=== PATIENT | male | born 1935 | race Caucasian/White ===

== ENCOUNTER → 2024-11-04 13:44 | Outpatient (REF) | payer OTHER, SELFPAY | LOC: RAD 13:44 | PROVIDERS: ATTENDING PHYSICIAN Internal Medicine Gastroenterology; FAMILY PHYSICIAN Internal Medicine | DX: K59.01 Slow transit constipation (principal) | CPT/HCPCS: 74018 ==

== ENCOUNTER 2024-11-12 01:52 | Emergency (ER) | payer OTHER, SELFPAY ==
[2024-11-12] VITALS (10 sets, daily range): BP systolic 124–169; BP diastolic 71–89; BMI 30.2
[2024-11-12 02:28] LABS: % Basophils 0.6 % (0-2); % Eosinophils 0.8 % (0-6); % Immature Granulocytes 0.4 % (0-0.5); % Lymphocytes 22.3 % (20.5-51.1); % Monocytes 11.2 % (1.7-9.3); % Neutrophils 64.7 % (42.2-75.2); Absolute Lymphocytes 1.1 10^3/uL (1.2-3.4); Absolute Monocytes 0.5 10^3/uL (0.1-0.6); Absolute Neutrophils 3.1 10^3/uL (1.4-6.5); Hematocrit 34.5 % (39.0-52.0); Hemoglobin 12.2 g/dL (13.0-18.0); Mean Corp Hgb Conc. 35.4 g/dL (33.0-37.0); Mean Corpuscular Hgb 33.9 pg (27.0-31.0); Mean Corpuscular Volume 95.8 fL (80.0-94.0); Mean Platelet Volume 9.4 fL (7.4-10.4); Nucleated Red Blood Cells % 0 % (-); Platelet Count 168 10^3/uL (130-400); Red Cell Dist. Width 14.5 % (11.5-14.5); White Blood Cell Count 4.8 10^3/uL (4.8-10.8)
[2024-11-12] MEDS: TYLENOL 1000 MG PO (02:58)
[2024-11-12 03:04] LABS: ALT (SGPT) 12 U/L (0-50); AST (SGOT) 20 U/L (17-59); Albumin 3.7 g/dl (3.5-5.0); Alkaline Phosphatase 37 U/L (38-126); Blood Urea Nitrogen 14 mg/dl (9-20); Calcium 8.6 mg/dl (8.4-10.2); Carbon Dioxide 23 mmol/L (22-30); Chloride 97 mmol/L (98-107); Estimated Creatinine Clearance 61 ml/min; Glucose 85 mg/dl (70-99); Lipase 38 U/L (23-300); Potassium 4.2 mmol/L (3.5-5.1); Sodium 125 mmol/L (135-145); Total Bilirubin 0.7 mg/dl (0.2-1.3); Total Protein 6.1 g/dl (6.3-8.2); eGFR > 60.00
--- NOTE | 2024-11-12 06:40 | ED.GENMED ---
History of Present Illness
General
Chief Complaint: Abdominal Pain
Source: patient
Exam Limitations: none
Time Seen by Provider: 11/12/24 06:33
History of Present Illness
History of Present Illness:
See MDM
Past History
Past History
ED Past Medical History: Arrthythmia, CAD, HTN and Hypercholesterolemia
ED Past Surgical History: Bowel resection, Cardiac and Orthopedic
Social History
Tobacco: Non-smoker
Alcohol: Occasional
Drug: None
Personal:
Living: with family
Family History
Family History: Negative Early CAD
Phy Exam
Physical Exam
Physical Exam:
See MDM
Course
Orders/Labs/Results
Orders:
Orders
11/12/24 02:10
IV Insert/Care/Rem.- Treatment PRN
11/12/24 02:18
Complete Blood Count/With Diff Urgent
Comprehensive Metabolic Panel Urgent
Lipase Urgent
11/12/24 02:56
Acetaminophen [Tylenol] 1,000 mg .ROUTE .STK-MED ONE
11/12/24 02:58
Acetaminophen [Tylenol] 1,000 mg PO NOW STA
11/12/24 06:36
CT Abd/pelvis W Iv Cont Urgent
Comment:
Reason For Exam: LLQ pain
11/12/24 07:00
Urinalysis Reflex To Culture Urgent
Date Specimen was Collected: 11/12/24
Time Specimen was Collected: 02:10
11/12/24 07:08
Ketorolac [Toradol] 15 mg IV NOW STA
11/12/24 09:02
Dicyclomine [Bentyl] 10 mg PO NOW STA
Abnormal Lab Results
11/12/24
02:18
RBC 3.60 L 10^6/uL
(4.70-6.10)
Hgb 12.2 L g/dL
(13.0-18.0)
Hct 34.5 L %
(39.0-52.0)
MCV 95.8 H fL
(80.0-94.0)
MCH 33.9 H pg
(27.0-31.0)
Absolute Lymphs (auto) 1.1 L 10^3/uL
(1.2-3.4)
Monocytes % 11.2 H %
(1.7-9.3)
Sodium 125 L mmol/L
(135-145)
Chloride 97 L mmol/L
(98-107)
Alkaline Phosphatase 37 L U/L
(38-126)
Total Protein 6.1 L g/dl
(6.3-8.2)
11/12/24 02:18
11/12/24 02:18
Vital Signs
Initial and Last Documented VS:
Initial Vital Signs
Temp Pulse Resp BP Pulse Ox
98.4 F 73 18 124/79 96
11/12/24 01:58 11/12/24 01:58 11/12/24 01:58 11/12/24 01:58 11/12/24 01:58
Last Documented Vital Signs
Temp Pulse Resp BP Pulse Ox
98.4 F 66 15 155/75 98
11/12/24 01:58 11/12/24 08:15 11/12/24 08:15 11/12/24 08:00 11/12/24 07:00
MDM/Problems Addressed
Differential Diagnosis Includes:
HPI and MDM Narrative:
89-year-old male presenting with left lower quadrant pain. Patient states he has had this pain for 'quite some time'. He noticed that the pain got worse yesterday. Since this similar pain has been related to constipation, he took a laxative. He
has been having large bowel movements but the pain has been uncontrolled. On exam, he is well-appearing nontoxic. He does have mild left lower quadrant tenderness but no rebound. He is unfamiliar with a prior diagnosis of diverticulosis. Given
his pain, will obtain CT scan. Prior records indicate that he had a recent abdominal x-ray showing concerns for constipation
Physical exam
General: Well appearing and non-toxic
HEENT: protecting airway
Neck: appears supple
CV: No evidence of cyanosis
Resp: No accessory muscle use
Abd: Non-distended. Mild left lower quadrant tenderness
Extremities: No deformities
Neuro: alert
Psych: Normal affect
Skin: Intact
Problems Addressed including Acute and Chronic Conditions affecting care:
1. Left lower quadrant pain
Acuity: acute
Prognosis: stable
Details: Given the persistence of symptoms and age, will obtain CT
Updates
CT scan shows no acute bacterial infection. There is concern for enteritis and diarrhea. On reexamination, patient now having episodes of diarrhea. Will prescribe Bentyl. The CT also made concern of possible aspiration or pneumonia versus
pneumonitis. Patient denies any cough when he eats and denies any shortness of breath.
Differential Diagnosis (but not limited to): Diverticulitis, colitis, constipation
Testing considered: Screening EKG
Drug therapy (if applicable): OTC meds, please see d/c instruction regarding Rx drugs
Amount and/or Complexity of Data Reviewed
Clinical info obtained from: Patient
External data reviewed: Recent abdominal x-ray shows concern for constipation
Labs I independently reviewed (but not limited to): White blood cell count normal
Radiology: The CT scan was personally and independently reviewed. In addition, official CT report reviewed.
Pulse Ox: not hypoxic
EKG independently reviewed: N/A
Deli/Bakery Associate: N/A
Critical Care: N/A
Risk of Complication:
Social Determinants of health: Good social support
Discussed with other providers: N/A
Escalation of Care includes Admit/Obs: After being observed in the Emergency Department, pt stable for discharge.
Occasional wrong word or 'sound a like' substitutions may have occurred due to the inherent limitations of voice recognition software. Read the chart carefully and recognize, using context, where substitutions have occurred.
*Critical Care Note
Total Time (30-74mins, 75-104mins- exclusive of procedures): Not Applicable
ED Attending Note
-
Portions of this chart may have been created with voice recognition software.� Occasional wrong word or��sound alike� substitutions may have occurred due to the inherent limitations of voice recognition software.
Discharge Plan
Departure
Patient Disposition: Home (Routine Discharge)
Date of Disposition: 11/12/24
Time of Disposition: 09:05
Patient with high blood pressure during this ER visit?: No
Discharge Problem:
Enteritis
Instructions: Acute Diarrhea
Prescriptions:
New
dicyclomine 10 mg capsule
10 mg PO BID Qty: 14 0RF
No Action
acetaminophen 325 MG tablet
325 mg PO PRN PRN (Reason: .as needed )
amiodarone [Pacerone] 200 MG tablet
200 mg PO DAILY
cyanocobalamin (vitamin B-12) 1,000 MCG tablet
1 tab PO DAILY
folic acid 0.4 MG tablet
0.8 mg PO DAILY
levothyroxine 75 MCG tablet
75 mcg PO DAILY
gabapentin 300 MG capsule
300 mg PO PRN PRN (Reason: .as needed )
pravastatin 20 MG tablet
20 mg PO DAILY
Eliquis 5 MG tablet
5 mg PO BID
ascorbic acid (vitamin C) 500 MG capsule
500 mg PO DAILY
Ferrous Gluconate 324 MG Tablet
324 mg PO DAILY
calcium 600 mg Capsule
600 mg PO DAILY
levothyroxine 88 mcg Tablet
88 mcg PO DAILY
tamsulosin 0.4 mg Capsule
0.4 mg PO DAILY
Vitamin D3
50 mcg PO DAILY
Prolia
1 dose IM Q6M
Referrals:
UNKNOWN - PT DOES,NOT KNOW [Family Provider] -
Activity Restrictions/Additional Instructions:
Please return for any worsening symptoms.
You may return at any time if you have further concerns.
Please follow up with your doctor at the first available appointment, preferably this week.
Thank you for choosing [facility].
Interventions
Interventions:
*Risk Screen - Suicide Last Done: 11/12/24 01:58
*General Assessment Last Done: 11/12/24 04:22
*Neglect/Abuse Screening Last Done: 11/12/24 01:58
*ED- Fall Risk Assessment Last Done: 11/12/24 04:22
*ED COVID-19 Vaccine History Last Done: 11/12/24 04:22
UA-Sikbig-Rwhainxdaj Assessment Last Done: 11/12/24 07:05
Discharge Date and Time
Print Language: ICELANDIC
[2024-11-12] MEDS: TORADOL 15 MG IV (07:29)
[2024-11-12] MEDS: BENTYL 10 MG PO (09:22)
== END 2024-11-12 09:45 | disposition home or self-care (01) ==
LOC: EMR 01:52
PROVIDERS: Emergency Medicine; EMERGENCY PHYSICIAN Student in an Organized Health Care Education/Training Program
DX: K52.9 Noninfective gastroenteritis and colitis, unspecified (principal); R19.7 Diarrhea, unspecified; I10 Essential (primary) hypertension; I25.10 Atherosclerotic heart disease of native coronary artery without angina pectoris; E78.00 Pure hypercholesterolemia, unspecified; Z98.0 Intestinal bypass and anastomosis status; Z88.1 Allergy status to other antibiotic agents; Z88.5 Allergy status to narcotic agent; Z88.2 Allergy status to sulfonamides; Z88.8 Allergy status to other drugs, medicaments and biological substances
CPT/HCPCS: 99284; 96374; 74177; 80053; 83690; 85025; Q9967

== ENCOUNTER 2024-11-25 00:56 | Inpatient (IN) | payer OTHER, SELFPAY ==
[2024-11-24 19:43] VITALS: BP 153/82
[2024-11-24 20:14] LABS: % Basophils 0.8 % (0-2); % Eosinophils 0.6 % (0-6); % Immature Granulocytes 0.6 % (0-0.5); % Lymphocytes 23.6 % (20.5-51.1); % Monocytes 11.4 % (1.7-9.3); Absolute Lymphocytes 1.1 10^3/uL (1.2-3.4); Absolute Monocytes 0.6 10^3/uL (0.1-0.6); Hematocrit 34.6 % (39.0-52.0); Hemoglobin 12.4 g/dL (13.0-18.0); Mean Corp Hgb Conc. 35.8 g/dL (33.0-37.0); Mean Corpuscular Hgb 33.9 pg (27.0-31.0); Mean Corpuscular Volume 94.5 fL (80.0-94.0); Mean Platelet Volume 9.6 fL (7.4-10.4); Nucleated Red Blood Cells % 0 % (-); Platelet Count 165 10^3/uL (130-400); Red Blood Cell Count 3.66 10^6/uL (4.70-6.10); White Blood Cell Count 4.8 10^3/uL (4.8-10.8)
[2024-11-24 20:26] LABS: ALT (SGPT) 12 U/L (0-50); AST (SGOT) 19 U/L (17-59); Albumin 3.7 g/dl (3.5-5.0); Alkaline Phosphatase 39 U/L (38-126); Blood Urea Nitrogen 9 mg/dl (9-20); Calcium 7.8 mg/dl (8.4-10.2); Carbon Dioxide 19 mmol/L (22-30); Chloride 93 mmol/L (98-107); Glucose 95 mg/dl (70-99); Lipase 34 U/L (23-300); Potassium 4.9 mmol/L (3.5-5.1); Sodium 119 mmol/L (135-145); Total Bilirubin 0.9 mg/dl (0.2-1.3); Total Protein 6.2 g/dl (6.3-8.2); eGFR > 60.00
[2024-11-24 21:26] VITALS: BP 145/77
--- NOTE | 2024-11-24 21:39 | ED.GENMED ---
History of Present Illness
General
Chief Complaint: Abdominal Pain
Source: patient
Time Seen by Provider: 11/24/24 21:20
History of Present Illness
History of Present Illness:
89-year-old male presents to the emergency room for evaluation of left lower quadrant abdominal pain. Patient states he has episodes of severe left lower quadrant abdominal pain which occur from time to time. Frequently they are related to
constipation. If he takes a laxative he has a large bowel movement and the pain improves. Patient was actually seen here in the emergency room for this on November 12. He had a CT scan which showed some liquid stool in the colon but no other
inflammatory changes. Patient was discharged on Bentyl. He was doing well until today when the pain recurred. The pain is actually resolved at the time of my evaluation. Patient had blood work ordered while in triage. Sodium turns out to be
quite low at 119. Patient admits to drinking a lot more water recently than his norm. Patient has been diagnosed with hyponatremia in the past and has been hospitalized at least 3 times. He was told to take salt tablets after the last time he was
admitted. He states his family doctor told him to stop though he is unclear why he states it is bad tasting.
Past History
Past History
ED Past Medical History: Arrthythmia, CAD, HTN and Hypercholesterolemia
ED Past Surgical History: Bowel resection, Cardiac and Orthopedic
Social History
Tobacco: Non-smoker
Alcohol: Occasional
Drug: None
Personal:
Living: with family
Family History
Family History: Negative Early CAD
Phy Exam
Physical Exam
Physical Exam:
General: Awake, Alert, Oriented X3. No acute distress.
Vitals: unremarkable
Head: Atraumatic
Eyes: Pupils equal, EOMI
Throat: Airway intact, no exudates
Neck: Trachea midline
Lungs: Clear and equal b/l
Heart: Regular rate, no murmurs
Abd: Soft, no reproducible abdominal pain, No pulsatile mass
Neuro: Nonfocal
Skin: Warm, dry, no rash
Extremities: pulses equal b/l, no edema
Course
Orders/Labs/Results
Orders:
Orders
11/24/24 19:59
Complete Blood Count/With Diff Urgent
Comprehensive Metabolic Panel Urgent
Lipase Urgent
11/24/24 22:14
Admit/Transfer Patient As Directed
Co-Sign Provider:
Level of Care: Inpatient admission
Assign to:: Telemetry
Physician / Group: Manish
Diagnosis: Acute on Chronic Hyponatremia, LLQ Pain
Reason for Telemetry: Arrhythmia
Date to Stop Telemetry: 11/27/24
Time to Stop Telemetry: 11:00
Reason for Hospitalization: Acute on Chronic Hyponatremia, LLQ Pain
Expected length of stay greater than two midnights?: Yes
ELOS- Estimated Length of Stay in days: 3
I certify the patient meets the requirements for IP care: Yes
PRN Pain Medication Management As Directed
May give lesser potent ordered pain med per pt: Yes
preference::
Protocol:: Medication orders for pain may be administered in a
manner that supports deferring to patient preference
when the pt is:
- Requesting an ordered lesser potent pain medication.
Least to most potent pain medications are defined
as: acetaminophen < NSAID < tramadol < opioids
(morphine, oxycodone, hydromorphone).
- Requesting a lesser dose of the same medication IF
ORDERED.
- Requesting a less intrusive route of administration
if both routes are prescribed by the provider (PO <
IV).
11/24/24 22:15
Code Status As Directed
Resuscitation Status: Full Code
11/24/24 22:20
Ketorolac [Toradol] 15 mg IV NOW STA
11/24/24 22:31
Osmolality, Random Urine Urgent
Date Specimen was Collected: 11/24/24
Time Specimen was Collected: 22:27
Urinalysis Urgent
Date Specimen was Collected: 11/24/24
Time Specimen was Collected: 22:27
Urine Sodium Urgent
Date Specimen was Collected: 11/24/24
Time Specimen was Collected: 22:27
11/24/24 22:42
Electrocardiogram (*1) Urgent
Reason for Study: Tachycardia
EKG- Treatment ONCE
11/24/24 23:00
3% Sodium Chloride 250 ml [Sodium Chloride 3%] 250 ml IV ONCE
Flush (0.9% Sodium Chloride) [Flush (Nss)] See Dose Instructions IV PER PROTOCOL
11/27/24 11:00
DC Protocol for Telemetry ONCE
Abnormal Lab Results
11/24/24 11/24/24
19:59 22:31
RBC 3.66 L 10^6/uL
(4.70-6.10)
Hgb 12.4 L g/dL
(13.0-18.0)
Hct 34.6 L %
(39.0-52.0)
MCV 94.5 H fL
(80.0-94.0)
MCH 33.9 H pg
(27.0-31.0)
Absolute Lymphs (auto) 1.1 L 10^3/uL
(1.2-3.4)
Immature Gran % 0.6 H %
(0-0.5)
Monocytes % 11.4 H %
(1.7-9.3)
Sodium 119 L* mmol/L
(135-145)
Chloride 93 L mmol/L
(98-107)
Carbon Dioxide 19 L mmol/L
(22-30)
Calcium 7.8 L mg/dl
(8.4-10.2)
Total Protein 6.2 L g/dl
(6.3-8.2)
Urine Ketones 1+ A
(Negative)
Urine Sodium 91 H mmol/L
(30-90)
11/24/24 19:59
11/24/24 19:59
Vital Signs
Initial and Last Documented VS:
Initial Vital Signs
Temp Pulse Resp BP Pulse Ox
97.8 F 83 20 153/82 97
11/24/24 19:43 11/24/24 19:43 11/24/24 19:43 11/24/24 19:43 11/24/24 19:43
Last Documented Vital Signs
Temp Pulse Resp BP Pulse Ox
97.8 F 67 15 117/56 95
11/24/24 19:43 11/25/24 00:00 11/25/24 00:00 11/25/24 00:00 11/24/24 22:15
MDM/Problems Addressed
MDM/Problems Addressed:
Patient presents with left lower quad abdominal pain which has resolved. His abdominal exam is benign. He had a CT scan performed on November 12 which was essentially unremarkable. Blood work today shows normal white count, normal renal function. His
sodium was a bit low on the at 125. It has gotten significantly lower today at 119. Discussed with nephrology. Will start hypertonic saline at 20 cc an hour. Urine osmolality and urine sodium ordered. Patient will require hospitalization
for this critically low sodium level
*Pulse Oximetry
Patient hypoxic: no
*Critical Care Note
Total Time (30-74mins, 75-104mins- exclusive of procedures): Not Applicable
Data Reviewed
Review of Other/Old Records Reveals: Radiology Studies (CT report from about 10 days ago)
Further Testing Considered But Not Given:
Considered CAT scan but given he just had a CT about 10 days ago and he has no reproducible pain on exam I do not believe that this radiation exposure is appropriate
Patient Management
Social determinants of health affecting care: Living situation
Discussion with other providers: Hospitalist
ED Attending Note
-
Portions of this chart may have been created with voice recognition software.� Occasional wrong word or��sound alike� substitutions may have occurred due to the inherent limitations of voice recognition software.
Discharge Plan
Departure
Patient Disposition: Admit
Date of Disposition: 11/24/24
Time of Disposition: 21:53
Admit to: Med/Surg
Presentation/result/management discussed w/ accepting MD/DO: Hospitalist
Condition: Serious
Discharge Problem:
Hyponatremia
Interventions
Interventions:
*Risk Screen - Suicide Last Done: 11/24/24 19:43
*General Assessment Last Done: 11/24/24 19:43
*Neglect/Abuse Screening Last Done: 11/24/24 19:43
*ED COVID-19 Vaccine History Last Done: 11/24/24 19:47
DW-Rmrrpx-Reicgskxri Assessment Last Done: 11/24/24 21:00
[2024-11-24] MEDS: SODIUM CHLORIDE 3% 250 IV (22:20)
--- NOTE | 2024-11-24 22:24 | HPS.HSE ---
Family Physician
-
Family Physician: Cyndi Spencer MD
Chief Complaint
-
Abd Pain
History of Present Illness
Patient is an 89y M with PMH significant for ASCVD, hypertension and A-Fib who presents to ED complaining of LLQ abdominal pain. Patient reports a long history of LLQ pain 'off-and on' x years. Patient states that his pain has been associated
with constipation in the past and has improved with bowel regimen +/- enemas. He presented to the ED here on 11/[address] scan done at that time was unremarkable (actually showed some liquid stool in the colon - no significant
stool burden / constipation). Patient notes that he was feeling OK for a week or so, but then the pain returned.
He has been taking laxatives at home and drinking more water / fluids than normal in an attempt to alleviate his 'constipation'.
Patient states that he has actually had about 4 bowel movements in the past 2 days. Three normal appearing BM and one loose stool.
He presented to the ED this evening with 8/10 abdominal pain. He denies any N/V, fevers / chills, urinary symptoms, bloody / black stools, etc.
Medical History
Past Medical History
Past Medical History: Reports Other
Additional Past Medical History:
ASCVD
Aortic Stenosis
A-Fib s/p Ablation
Hypothyroidism
SIADH
BPH
Past Surgical History: Reports Other
Additional Past Surgical History:
CABG
PVI Ablation
PPM Placement
Aortic Valve Replacement
Partial Bowel Resection (pneumatosis intestinalis)
Left STEPHANE (x 2)
Social History
Tobacco: Non-smoker
Alcohol: Occasional
Drug: None
Family History
Family History: Not pertinent
Allergies / Home Medications
Allergies reflects when Allergies were last updated in [employer].
Home Medications with original date entered in [employer]
Allergy/Medication List:
Allergies
Allergy/AdvReac Type Severity Reaction Status Date / Time
hyoscyamine Allergy Unknown Verified 11/24/24 19:47
lisinopril Allergy Unknown Verified 11/24/24 19:47
losartan Allergy Unknown Verified 11/24/24 19:47
oxycodone Allergy Unknown Verified 11/24/24 19:47
sulfamethoxazole (From Allergy Unknown Verified 11/24/24 19:47
Bactrim)
trimethoprim (From Bactrim) Allergy Unknown Verified 11/24/24 19:47
Home Medications
Ferrous Gluconate 324 mg PO BID Supplement 03/16/21
acetaminophen 325 mg tablet 325 mg PO Q6HPRN PRN mild pain 03/16/21
amiodarone 200 mg tablet (Pacerone) 200 mg PO DAILY@1200 Arrhythmia 03/16/21
apixaban 5 mg tablet (Eliquis) 5 mg PO BID Blood clot prevention/tx 03/16/21
ascorbic acid (vitamin C) 500 mg capsule 500 mg PO DAILY@1200 Supplement 03/16/21
cyanocobalamin (vitamin B-12) 1,000 mcg tablet 1,000 mcg PO DAILY@1200 Supplement 03/16/21
folic acid 400 mcg tablet 0.8 mg PO DAILY Stroke 03/16/21
gabapentin 300 mg capsule 300 mg PO HS 03/16/21
pravastatin 20 mg tablet 20 mg PO QPM High cholesterol 03/16/21
denosumab 60 mg/mL subcutaneous syringe (Prolia) 60 mg SC [id number] 11/12/24
levothyroxine 88 mcg tablet 88 mcg PO DAILY 11/12/24
tamsulosin 0.4 mg capsule 0.4 mg PO BID 11/12/24
calcium carbonate (Calcium 600) 600 mg PO DAILY 11/24/24
multivitamin with minerals (Hair,Skin and Nails tablet) 1 tab PO DAILY 11/24/24
sennosides 8.6 mg tablet (senna) 8.6 mg PO DAILYPRN PRN constipation 11/24/24
Review of Systems
-
History Source: Patient
A 12 point ROS was completed and negative except as noted: Yes
Constitutional: Reports Fatigue; Denies Fever or Chills
Respiratory: Denies Cough or Trouble Breathing
Cardiac: Denies Chest Pain or Palpitations
Abdomen/GI: Reports Abdominal Pain and Constipated; Denies Nausea, Vomiting, Diarrhea, Bloody Stools or Black Stools
: Denies Dysuria or Frequency
Musculoskeletal: Denies Joint Pain or Edema
Neurological: Denies Dizzy or Headache
Psych: Denies Depression or Anxiety
Physical Exam
Vital Signs
Vital Signs
Temp Pulse Resp BP Pulse Ox
97.8 F 66 19 145/77 98
11/24/24 19:43 11/24/24 21:28 11/24/24 21:28 11/24/24 21:26 11/24/24 21:28
Physical Exam
General: Other (89y M in mild distress due to abdominal pain.)
HEENT: Moist mucous membranes and PERRLA
Respiratory: Clear; No Wheezes, Rales or Rhonchi
Cardiac: S1/S2, Regular Rhythm and Murmur (III/ CATHY)
GI: Soft, Non Tender, Non Distended, Normal Bowel Sounds and Other (Patient complains of LLQ pain - but there is no tenderness on exam.)
Musculoskeletal: No Clubbing, No Cyanosis and Other (Trace pedal edema.)
Neuro: AO x 3
Laboratory Results
-
11/24/24 19:59
11/24/24 19:59
Laboratory Results
Total Bilirubin 0.9 mg/dl (0.2-1.3) 11/24/24 19:59
AST 19 U/L (17-59) 11/24/24 19:59
ALT 12 U/L (0-50) 11/24/24 19:59
Alkaline Phosphatase 39 U/L (38-126) 11/24/24 19:59
Lipase 34 U/L (23-300) 11/24/24 19:59
Impression/Plan
-
A/P: Patient is an 89y M with PMH significant for SIADH, ASCVD and A-Fib who presents to ED complaining of LLQ pain and noted to have hyponatremia.
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
SIADH
- Admit for further evaluation and treatment.
- Na today is 119 compared to baseline usually 125-130.
- Combination of pain response, increased fluid intake, etc.
- Urine studies are pending.
- 3% saline ordered in the ED.
- Fluid restriction.
- Will resume salt tabs again (patient states that he has been off of these for at least 1 year - per PCP direction).
- Nephrology evaluation.
- Follow for improvement in Na levels.
LLQ Abdominal Pain
- Unclear etiology of chronic / recurrent symptoms.
- Patient reports constipation; however, current CT and review of prior imaging all note liquid stool in colon / rectum and not large amount of stool burden / constipation seen on imaging.
- No evidence of diverticulitis, etc. No tenderness on exam despite report of pain.
- Supportive care. Would hold further bowel regimen for now given liquid stool on imaging and no improvement in pain despite 4 BM in the past 2 days.
- GI evaluation for any additional recommendations.
ASCVD
A-Fib s/p Ablation
- Stable. Continue current CV med regimen.
- s/p ablation and PPM placement.
- Continue amiodarone and Eliquis.
Hypothyroidism
- Continue current T4 replacement for now.
- Update TFTs and adjust dose if needed.
BPH
- Stable. Continue tamsulosin.
DVT Prophylaxis: On Eliquis
Code Status: Full
[2024-11-24] MEDS: TORADOL 15 MG IV (22:28)
[2024-11-24 22:31] VITALS: BP 146/69
[2024-11-24 22:42] LABS: Urine Albumin Negative (Neg - Trace); Urine Bilirubin Negative (Negative); Urine Character Clear (Clear); Urine Color Yellow; Urine Glucose Negative (Negative); Urine Ketone 1+ (Negative); Urine Leukocyte Negative (Negative); Urine Nitrite Negative (Negative); Urine Occult Blood Negative (Negative); Urine Urobilinogen Negative (Neg - 1+)
[2024-11-24 22:47] LABS: Osmolality Urine 419 mOsm/kg (300-900)
[2024-11-24 22:51] LABS: Urine Sodium 91 mmol/L (30-90)
[2024-11-24 23:00] VITALS: BP 136/60
[2024-11-25] VITALS (17 sets, daily range): BP systolic 117–165; BP diastolic 56–99; BMI 29.8
[2024-11-25] MEDS: TYLENOL 650 MG PO ×2 (02:56→21:05)
--- NOTE | 2024-11-25 04:56 | TRANSFER ---
Pt admitted to [facility] from ED with acute on chronic hyponatremia and LLQ pain. Pt ambulated from stretcher to bed. Pt oriented to room, call cm within reach. Plan of care ongoing.
[2024-11-25 05:39] LABS: Hemoglobin 12.1 g/dL (13.0-18.0); Mean Corp Hgb Conc. 35.6 g/dL (33.0-37.0); Mean Corpuscular Hgb 33.9 pg (27.0-31.0); Mean Corpuscular Volume 95.2 fL (80.0-94.0); Mean Platelet Volume 10.1 fL (7.4-10.4); Platelet Count 172 10^3/uL (130-400); Red Blood Cell Count 3.57 10^6/uL (4.70-6.10); White Blood Cell Count 3.9 10^3/uL (4.8-10.8)
[2024-11-25] MEDS: SYNTHROID 88 MCG PO (06:06)
[2024-11-25 06:27] LABS: Blood Urea Nitrogen 8 mg/dl (9-20); Calcium 7.3 mg/dl (8.4-10.2); Carbon Dioxide 22 mmol/L (22-30); Chloride 92 mmol/L (98-107); Estimated Creatinine Clearance 69 ml/min; Glucose 82 mg/dl (70-99); Potassium 5.1 mmol/L (3.5-5.1); Sodium 117 mmol/L (135-145); eGFR > 60.00
--- NOTE | 2024-11-25 06:40 | PTCARENOTE ---
Received critical sodium result of 117 down from 119 in the ED. BONDERITE OPERATOR notified and advised to let current order 250ml of Sodium Chloride 3% running at 20ml/hr finish.
[2024-11-25 06:43] LABS: TSH Reflex To Free T4 7.19 uIU/ml (0.47-4.68)
--- NOTE | 2024-11-25 07:07 | CON.GI ---
Addendum entered and electronically signed by Celestina Jane MD 11/25/24 15:05:
I saw and examined the patient.
The COSTUME RENTAL CLERK's note was reviewed and I agree with the note.
Comment: This is a pleasant 89-year-old male with past medical history as listed below including history of pneumatosis intestinalis status post colon resection and was seeing Dr. Mathur, chronic constipation, SIADH, A-fib on Eliquis and amiodarone
and rest as below who presented to the emergency room with symptoms of left lower quadrant pain. He had similar pain on 11/[address] in the ER not revealing any source for the pain. He does have constipation but he did have a bowel movement today
and he states that the pain actually resolved after he came to the ER and received pain medications and has not had further pain. He had his last colonoscopy with Dr. Mathur about 5 years ago. He denies any fevers chills no nausea or vomiting. He
was also found to have significant hyponatremia with a sodium of 119 on admission and has been seen by renal.
Assessment and plan chronic left lower quadrant pain with worsening pain yesterday and also visit to the ER for similar pain on 11/12. Unclear if this is related to adhesions from prior surgery versus constipation although CT suggestive of
gastroenteritis from 11/12 no diarrhea currently and he did have a bowel movement today. he denies straining or hard stools. It could also be related to referred pain from his back he does have L1 compression fracture. If pain recurs or worsens
then would repeat CT but today he has no pain and is tolerating diet. Will sign off and will be available as needed
Original Note:
Consultation
-
Date/Time Consultation Requested: 11/24/242229
Date/Time Consultation Performed: 11/25/24919
Requesting Provider: Chon Hammond DO
Performing Provider: REA Gonzáles, Celestina Jnae MD
Reason for Consultation: abdominal pain
Medical History
Chief Complaint / HPI
Chief Complaint: LLQ abdominal pain
History of Present Illness:
Pt is a 89yo with hx afib with prior ablation on Eliquis, CAD with prior CABG/AVR, pacer, BPH, HTN, constipation, osteoporosis, iron deficiency, prior bowel resection with pneumatosis intestinalis, hyponatremia, SIADH present to ER with LLQ pain
with acute on chronic symptoms for years. Pt with similar ER evaluation 11/12 Pain was noted to be improved in ER but pt also noted with Na 119 and admitted for further evaluation. Recent imaging prior to admission 11/12 with increased bibasilar
reticular and nodular opacities which may represent acute pneumonitis superimposed on chronic interstitial disease with possible aspiration, suggestive of coloenteritis/diarrheal illness,Small hiatal hernia, Cholelithiasis, and Chronic compression
deformity of the L1 vertebral body.11/04/24 Abd film Nonobstructive intestinal bowel gas pattern.Moderate volume widespread colonic stool.
In review with patient he admits to chronic LLQ pain. He was improved for 2 years but now recurrent pain. Pain in past has been triggered by constipation with hx resection in past . He admits to taking laxative and pain improving. He
started with recurrent abdominal pain prior to admission. Pain was different pattern as pain was worse after laxative and BM. Pain is now resolved. Pt also admits to some nausea and minimal bloating. Pt otherwise denies dysphagia, GERD,
diarrhea, or rectal bleeding. No EGD in past but several colonoscopies at [facility] last several years ago. No NSAID use.
Past Medical History
Past Medical History: Arrhythmias (afib with hx prior ablation ), CAD, HTN, Valvular Disease () and Other (constipation, osteoporosis, iron deficiency, hyponatremia, SIAHD, BPH)
Past Surgical History: Bowel Resection (pneumatosis intestinalis ), Cardiac (CABG, AVR, pacer ) and Orthopedic (left hip surgery, spinal surgery )
Social History
Tobacco: Non-Smoker
Alcohol: Occasional (3 glasses of wine weekly )
Drug: None
Personal:
Living: Alone
Employment: Retired
Family History
Family History: Other (no family hx colon CA or polyps )
Allergies / Home Medications
Allergy/AdvReac Type Severity Reaction Status Date / Time
hyoscyamine Allergy Unknown Verified 11/24/24 19:47
lisinopril Allergy Unknown Verified 11/24/24 19:47
losartan Allergy Unknown Verified 11/24/24 19:47
oxycodone Allergy Unknown Verified 11/24/24 19:47
sulfamethoxazole (From Allergy Unknown Verified 11/24/24 19:47
Bactrim)
trimethoprim (From Bactrim) Allergy Unknown Verified 11/24/24 19:47
�Medication �Instructions �Recorded
Ferrous Gluconate 324 mg PO BID Supplement 03/16/21
acetaminophen 325 mg tablet 325 mg PO Q6HPRN PRN mild pain 03/16/21
amiodarone 200 mg tablet (Pacerone) 200 mg PO DAILY@1200 Arrhythmia 03/16/21
apixaban 5 mg tablet (Eliquis) 5 mg PO BID Blood clot 03/16/21
prevention/tx
ascorbic acid (vitamin C) 500 mg 500 mg PO DAILY@1200 Supplement 03/16/21
capsule
cyanocobalamin (vitamin B-12) 1,000 mcg PO DAILY@1200 Supplement 03/16/21
1,000 mcg tablet
folic acid 400 mcg tablet 0.8 mg PO DAILY Stroke 03/16/21
gabapentin 300 mg capsule 300 mg PO HS 03/16/21
pravastatin 20 mg tablet 20 mg PO QPM High cholesterol 03/16/21
denosumab 60 mg/mL subcutaneous 60 mg SC [id number] 11/12/24
syringe (Prolia)
levothyroxine 88 mcg tablet 88 mcg PO DAILY 11/12/24
tamsulosin 0.4 mg capsule 0.4 mg PO BID 11/12/24
calcium carbonate (Calcium 600) 600 mg PO DAILY 11/24/24
multivitamin with minerals 1 tab PO DAILY 11/24/24
(Hair,Skin and Nails tablet)
sennosides 8.6 mg tablet (senna) 8.6 mg PO DAILYPRN PRN constipation 11/24/24
Review of Systems
-
History Source: Patient
Constitutional: Reports No Symptoms
EENT: Reports No Symptoms
Respiratory: Reports No Symptoms
Cardiac: Reports No Symptoms
Abdomen/GI: Reports Abdominal Pain (LLQ pain ), Nausea and Constipated (at time )
: Reports No Symptoms
Musculoskeletal: Reports No Symptoms
Skin: Reports No Symptoms
Neurological: Reports Other (mental fogginess )
Endocrine: Reports No Symptoms
Hematologic/Lymphatic: Reports No Symptoms
Vital Signs
Temp Pulse Resp BP Pulse Ox
97.6 F 75 18 131/64 98
11/25/24 02:03 11/25/24 02:03 11/25/24 02:03 11/25/24 02:03 11/25/24 02:03
Physical Exam
Exam
General: Well Developed, Well Nourished and No Apparent Distress
HEENT: Normocephalic
Respiratory: Clear
Cardiac: Regular Rhythm
GI: Soft, Non Tender and Non Distended
Musculoskeletal: No Clubbing and No Cyanosis
Skin: Warm and Dry
Neuro: Awake, Alert, AO x 3 and Other (admits to fogginess and some forgetfulness )
Psych: Calm
Results
WBC 3.9 10^3/uL (4.8-10.8) L 11/25/24 05:07
Hgb 12.1 g/dL (13.0-18.0) L 11/25/24 05:07
Hct 34.0 % (39.0-52.0) L 11/25/24 05:07
MCV 95.2 fL (80.0-94.0) H 11/25/24 05:07
Plt Count 172 10^3/uL (130-400) 11/25/24 05:07
Absolute Neuts (auto) 3.0 10^3/uL (1.4-6.5) 11/24/24 19:59
Sodium 117 mmol/L (135-145) L* 11/25/24 05:07
Potassium 5.1 mmol/L (3.5-5.1) 11/25/24 05:07
Chloride 92 mmol/L (98-107) L 11/25/24 05:07
Carbon Dioxide 22 mmol/L (22-30) 11/25/24 05:07
BUN 8 mg/dl (9-20) L 11/25/24 05:07
Creatinine 0.7 mg/dL (0.7-1.3) 11/25/24 05:07
Calcium 7.3 mg/dl (8.4-10.2) L 11/25/24 05:07
Total Bilirubin 0.9 mg/dl (0.2-1.3) 11/24/24 19:59
AST 19 U/L (17-59) 11/24/24 19:59
ALT 12 U/L (0-50) 11/24/24 19:59
Alkaline Phosphatase 39 U/L (38-126) 11/24/24 19:59
Lipase 34 U/L (23-300) 11/24/24 19:59
Diagnostic Image Results:
11/12 with increased bibasilar reticular and nodular opacities which may represent acute pneumonitis superimposed on chronic interstitial disease with possible aspiration, suggestive of coloenteritis/diarrheal illness,Small hiatal hernia,
Cholelithiasis, and Chronic compression deformity of the L1 vertebral body.
11/04/24 Abd film Nonobstructive intestinal bowel gas pattern.Moderate volume widespread colonic stool.
Prior GI Procedures:
EGD: none
Colonoscopy: last several years ago at [facility]
Assessment / Plan
-
Pt is a 89yo with hx afib with prior ablation on Eliquis, CAD with prior CABG/AVR, pacer, BPH, HTN, constipation, osteoporosis, iron deficiency, prior bowel resection, hyponatremia, SIADH present to ER with LLQ pain with acute on chronic symptoms
for years. Pt with similar ER evaluation 5/17. Pain was noted to be improved in ER but pt also noted with Na 119 and admitted for further evaluation. Recent imaging prior to admission 11/12 with
increased bibasilar reticular and nodular opacities which may represent acute pneumonitis superimposed on chronic interstitial disease with possible aspiration, suggestive of coloenteritis/diarrheal illness,Small hiatal hernia, Cholelithiasis, and
Chronic compression deformity of the L1 vertebral body.11/04/24 Abd film Nonobstructive intestinal bowel gas pattern.Moderate volume widespread colonic stool.
-severe hyponatremia on admission with hx SIADH
-acute on chronic LLQ abdominal pain now resolved.
-hx constipation
other medical problems:
-ASCVD
-hypothyroidism
-BPH
-afib with prior ablation on Eliquis prior to admission
-CAD with prior CABG
-hx AVR
-pacer
-HTN
-osteoporosis
-iron deficiency
-prior bowel resection
PLAN:
etiology of abdominal pain related to low grade ileus with severe hyponatremia, constipation drive with hx prior colon resection vs other
pt pain now resolved
hold imaging unless signs of recurrent pain
cont diet
Na 119--117-- cont to correct for renal eval
pt currently with stool this am and declines need for laxative-- will add Dulcolax/senna PRN
pt declines to use fiber and miralax as no improvement with use in past
reviewed with nursing staff
-
-
Thank you for consultation and allowing me to participate in the patient's care. Please call the alteration hand GI physician during the after hours with any questions or concerns.
[2024-11-25 07:13] LABS: Free T4 2.17 ng/dl (0.78-2.19)
[2024-11-25] MEDS: FLOMAX 0.4 MG PO ×2 (07:57→20:02)
[2024-11-25] MEDS: FOLVITE 0.8 MG PO (07:57)
[2024-11-25] MEDS: ELIQUIS 5 MG PO ×2 (07:57→20:02)
[2024-11-25] MEDS: SODIUM CHLORIDE 1 GRAM PO (07:58)
--- NOTE | 2024-11-25 11:06 | W.CON.NEPH ---
Consultation
-
Date/Time Consultation Requested: November 24, 2024 at 11 PM
Date/Time Consultation Performed: November 25, 2024 at 9 AM
Requesting Provider: Dr. Hammond
Performing Provider: Dr. Washington
Reason for Consultation: Hyponatremia
Medical History
-
Chief Complaint: Hyponatremia
History of Present Illness:
89y M with PMH significant for ASCVD, hypertension and A-Fib who presents to ED complaining of LLQ abdominal pain. He presented to the ED here on 11/[address] scan done at that time was unremarkable (actually showed some
liquid stool in the colon - no significant stool burden / constipation). Patient notes that he was feeling OK for a week or so, but then the pain returned.
He has been taking laxatives at home and drinking more water / fluids than normal in an attempt to alleviate his 'constipation'.
History of hyponatremia 2020 sodium 125 is deemed to be SIADH she was on salt tablets that has been discontinued.
He states he had hyponatremia again in 2022 of 125
He presented to the ED this evening with 8/10 abdominal pain.
Renal consult for hyponatremia of 119
On 3% saline
Past Medical History
ASCVD, hypertension and A-Fib
Social History
Tobacco: Non-Smoker
Alcohol: None
Allergies / Home Medications
Allergy/AdvReac Type Severity Reaction Status Date / Time
hyoscyamine Allergy Unknown Verified 11/24/24 19:47
lisinopril Allergy Unknown Verified 11/24/24 19:47
losartan Allergy Unknown Verified 11/24/24 19:47
oxycodone Allergy Unknown Verified 11/24/24 19:47
sulfamethoxazole (From Allergy Unknown Verified 11/24/24 19:47
Bactrim)
trimethoprim (From Bactrim) Allergy Unknown Verified 11/24/24 19:47
�Medication �Instructions �Recorded �Confirmed �Type
Ferrous Gluconate 324 mg PO BID Supplement 03/16/21 11/24/24 History
acetaminophen 325 mg tablet 325 mg PO Q6HPRN PRN mild pain 03/16/21 11/24/24 History
amiodarone 200 mg tablet (Pacerone) 200 mg PO DAILY@1200 Arrhythmia 03/16/21 11/24/24 History
apixaban 5 mg tablet (Eliquis) 5 mg PO BID Blood clot 03/16/21 11/24/24 History
prevention/tx
ascorbic acid (vitamin C) 500 mg 500 mg PO DAILY@1200 Supplement 03/16/21 11/24/24 History
capsule
cyanocobalamin (vitamin B-12) 1,000 mcg PO DAILY@1200 Supplement 03/16/21 11/24/24 History
1,000 mcg tablet
folic acid 400 mcg tablet 0.8 mg PO DAILY Stroke 03/16/21 11/24/24 History
gabapentin 300 mg capsule 300 mg PO HS 03/16/21 11/24/24 History
pravastatin 20 mg tablet 20 mg PO QPM High cholesterol 03/16/21 11/24/24 History
denosumab 60 mg/mL subcutaneous 60 mg SC [id number] 11/12/24 11/24/24 History
syringe (Prolia)
levothyroxine 88 mcg tablet 88 mcg PO DAILY 11/12/24 11/24/24 History
tamsulosin 0.4 mg capsule 0.4 mg PO BID 11/12/24 11/24/24 History
calcium carbonate (Calcium 600) 600 mg PO DAILY 11/24/24 11/24/24 History
multivitamin with minerals 1 tab PO DAILY 11/24/24 11/24/24 History
(Hair,Skin and Nails tablet)
sennosides 8.6 mg tablet (senna) 8.6 mg PO DAILYPRN PRN constipation 11/24/24 11/24/24 History
Review of Systems
-
Mild nausea
Physical Exam
Vital Signs
Vital Signs
Temp Pulse Resp BP Pulse Ox
97.6 F 72 16 141/77 97
11/25/24 07:10 11/25/24 07:10 11/25/24 07:10 11/25/24 07:10 11/25/24 07:10
Lab Results
WBC 3.9 10^3/uL (4.8-10.8) L 11/25/24 05:07
RBC 3.57 10^6/uL (4.70-6.10) L 11/25/24 05:07
Hgb 12.1 g/dL (13.0-18.0) L 11/25/24 05:07
Hct 34.0 % (39.0-52.0) L 11/25/24 05:07
Plt Count 172 10^3/uL (130-400) 11/25/24 05:07
eGFR > 60.00 11/25/24 05:07
Albumin 3.7 g/dl (3.5-5.0) 11/24/24 19:59
Physical Exam
General no acute distress
HEENT no cephalic atraumatic extraocular muscle intact no scleral icterus no JVD neck supple
lungs clear to auscultation bilateral
heart regular S1-S2 positive
abdomen soft nontender positive bowel sounds
extremities no edema pulses present bilateral
Neurologically nonfocal alert and oriented x 3
Skin no lesions no abrasions no petechiae
Psych normal affect no bizarre behavior
Data Reviewed
-
Labs: Labs Reviewed by me, Discussed with Physician and Discussed with Patient
Assessment/Plan
-
89y M with PMH significant for ASCVD, hypertension and A-Fib who presents to ED complaining of LLQ abdominal pain.
Sodium 119
Chronic hyponatremia with recurrent admissions
Previously on salt tablets
Impression.
Hyponatremia. 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
Abdominal pain.
Hypertension.
Atrial fibrillation.
Plan.
Continue 3% saline
Increased dose to 30 cc/h
Stat BMP
BMP later this afternoon
Check bladder scan
[2024-11-25 11:26] LABS: Blood Urea Nitrogen 7 mg/dl (9-20); Calcium 7.1 mg/dl (8.4-10.2); Carbon Dioxide 18 mmol/L (22-30); Chloride 94 mmol/L (98-107); Estimated Creatinine Clearance 81 ml/min; Glucose 93 mg/dl (70-99); Potassium 4.8 mmol/L (3.5-5.1); Sodium 116 mmol/L (135-145); eGFR > 60.00
--- NOTE | 2024-11-25 11:43 | W.PN.HOSP.TC ---
Today's Communication/Plan
-
continue 3%NS
follow labs
await further input from GI as to etio of LLQ abd pain
Assessment / Plan
Assessment / Plan
A/P: Patient is an 89y M with PMH significant for SIADH, ASCVD and A-Fib who presents to ED complaining of LLQ pain and noted to have hyponatremia.
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
SIADH
- Admit for further evaluation and treatment.
- Na on admission 119 (compared to baseline usually 125-130)-->117-->116
- Combination of pain response, increased fluid intake, etc.
- Urine studies are pending.
- 3% saline ordered in the ED.
- Fluid restriction.
- Will resume salt tabs again (patient states that he has been off of these for at least 1 year - per PCP direction).
- Nephrology input appreciated
- Follow for improvement in Na levels.
LLQ Abdominal Pain
- Unclear etiology of chronic / recurrent symptoms.
- Patient reports constipation; however, current CT and review of prior imaging all note liquid stool in colon / rectum and not large amount of stool burden / constipation seen on imaging.
- No evidence of diverticulitis, etc. No tenderness on exam despite report of pain.
- Supportive care. Would hold further bowel regimen for now given liquid stool on imaging and no improvement in pain despite 4 BM in the past 2 days.
- GI evaluation for any additional recommendations.
CT scan 11/12: There is increased bibasilar reticular and nodular opacities which may represent acute pneumonitis superimposed on chronic interstitial disease. Findings can also be seen in the setting of aspiration.
Findings suggestive of coloenteritis/diarrheal illness.
Small hiatal hernia.
Cholelithiasis.
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
ASCVD
A-Fib s/p Ablation
- Stable. Continue current CV med regimen.
- s/p ablation and PPM placement.
- Continue amiodarone and Eliquis.
Hypothyroidism
- Continue current T4 replacement for now.
- TSH 7.19/free T4 2.17
BPH
- Stable. Continue tamsulosin.
DVT Prophylaxis: On Eliquis
Code Status: Full
Anticipated Discharge: > 48 hours
Subjective/Interval History
-
Date of Service: November 25, 2024
Major concern is LLQ pain, generally does not feel well
Objective Data
-
Labs:
Laboratory Results
11/25/24 11/25/24 11/25/24
05:07 10:29 16:00
WBC 3.9 L
Hgb 12.1 L
Hct 34.0 L
Plt Count 172
Sodium 117 L* 116 L* Pending
Potassium 5.1 4.8 Pending
Chloride 92 L 94 L Pending
Carbon Dioxide 22 18 L Pending
BUN 8 L 7 L Pending
Creatinine 0.7 0.6 L Pending
Glucose 82 93 Pending
Calcium 7.3 L 7.1 L Pending
Vital Signs:
Vital Signs
Temp Pulse Resp BP Pulse Ox
97.6 F 72 16 141/77 97
11/25/24 07:10 11/25/24 07:10 11/25/24 07:10 11/25/24 07:10 11/25/24 07:10
Review of Systems
-
History Source: Patient and Coordinated Provider (discussed with Meche)
Constitutional: Reports No Symptoms; Denies Fever
EENT: Reports No Symptoms Reported
Respiratory: Reports No Symptoms
Cardiac: Reports No Symptoms
Abdomen/GI: Reports Abdominal Pain (LLQ)
Physical Exam
-
General: Well Developed, Well Nourished and No Apparent Distress
HEENT: Normocephalic, Atraumatic and Moist Mucous Membranes
Respiratory: Clear to Auscultation; Negative Wheezes, Rales or Rhonchi
Cardiac: Regular Rhythm and S1/S2
GI: Soft, Nontender, Nondistended and Normal Bowel Sounds
Musculoskeletal: No Clubbing, No Cyanosis and No Edema
Neuro: Awake, Alert and Oriented
[2024-11-25] MEDS: PACERONE 200 MG PO (12:41)
--- NOTE | 2024-11-25 14:55 | CM ---
Alert awake oriented patient who lives alone at [facility]. He no longer drives. He is independent in all activities of daily living.He was offered VN he declined need.He uses cane walker and has exercise program at [place].
No VN hx / No SNF history
Pharmacy [facility]
PCP DR Pratt
PLAN Home Declined VN
[2024-11-25 16:51] LABS: Blood Urea Nitrogen 9 mg/dl (9-20); Calcium 7.3 mg/dl (8.4-10.2); Carbon Dioxide 19 mmol/L (22-30); Chloride 93 mmol/L (98-107); Estimated Creatinine Clearance 69 ml/min; Glucose 88 mg/dl (70-99); Potassium 4.7 mmol/L (3.5-5.1); Sodium 114 mmol/L (135-145); eGFR > 60.00
--- NOTE | 2024-11-25 17:42 | PTCARENOTE ---
pt reporting new nausea. pt reporting brain fog throughout the day, providers notified this AM. 1600 BMP Na resulted at 114. Dr. Serrano and Dr. Washington notified via tt. transfer order to ICU and 3% bolus placed. nursing sup notified, ICU bed
1615, reported called at 1740.
[2024-11-25 18:11] LABS: Glucose - Point of Care 107 mg/dl (70-99)
[2024-11-25] MEDS: SODIUM CHLORIDE 3% 100 IV (18:21)
[2024-11-25] MEDS: PRAVACHOL 20 MG PO (18:27)
[2024-11-25] MEDS: SODIUM CHLORIDE 3% 250 IV (18:30)
--- NOTE | 2024-11-25 19:19 | PTCARENOTE ---
Pt arrived to ICU approx 1800. Pt able to walk to bed, Pt oriented x3, and BENAVIDES bilat. HR AV paced, BP 140/80. O2 sat=95% on R/A, lobes clear. 3% Na Cl/100 ml hung at 400 ml/hr over 15 mins, and then 3% Na Cl/ 250 ml now infusing at 30 ml/hr over
next 8 hrs, 2 mins. Urinal at pt's side, and call cm within reach in bed. Pt's granddaughter visiting with pt now.
--- NOTE | 2024-11-25 20:43 | PTCARENOTE ---
Received patient AAOx3, following commands, denying pain with granddaughter at bedside. KALSKAG b/l. AV paced in the 60s, BP 140s/70s, normothermic, trace LE b/l edema. 95% on room air, lung sounds clear, diminished in the bases b/l. Positive bowel
sounds, patient ambulates with assistance to bathroom to void. Skin intact. PIV WNL, 3% NSS gtt ongoing. Warm blanket provided, call cm within reach.
[2024-11-25 20:44] LABS: Blood Urea Nitrogen 8 mg/dl (9-20); Calcium 7.2 mg/dl (8.4-10.2); Carbon Dioxide 16 mmol/L (22-30); Chloride 97 mmol/L (98-107); Estimated Creatinine Clearance 69 ml/min; Glucose 101 mg/dl (70-99); Potassium 4.9 mmol/L (3.5-5.1); Sodium 116 mmol/L (135-145); eGFR > 60.00
[2024-11-25] MEDS: NEURONTIN 300 MG PO (21:05)
[2024-11-25 23:12] LABS: Blood Urea Nitrogen 8 mg/dl (9-20); Calcium 7.4 mg/dl (8.4-10.2); Carbon Dioxide 17 mmol/L (22-30); Chloride 97 mmol/L (98-107); Estimated Creatinine Clearance 69 ml/min; Glucose 83 mg/dl (70-99); Potassium 4.7 mmol/L (3.5-5.1); Sodium 117 mmol/L (135-145); eGFR > 60.00
[2024-11-26] VITALS (19 sets, daily range): BP systolic 106–157; BP diastolic 42–112; BMI 28.1
--- NOTE | 2024-11-26 00:36 | PTCARENOTE ---
Patient assessment unchanged from previous, hourly rounding and patient safety checks ongoing. Call cm within reach.
[2024-11-26 04:09] LABS: Hematocrit 33.4 % (39.0-52.0); Hemoglobin 11.9 g/dL (13.0-18.0); Mean Corp Hgb Conc. 35.6 g/dL (33.0-37.0); Mean Corpuscular Hgb 33.8 pg (27.0-31.0); Mean Corpuscular Volume 94.9 fL (80.0-94.0); Platelet Count 173 10^3/uL (130-400); Red Blood Cell Count 3.52 10^6/uL (4.70-6.10); Red Cell Dist. Width 13.8 % (11.5-14.5); White Blood Cell Count 4.1 10^3/uL (4.8-10.8)
[2024-11-26 04:37] LABS: Blood Urea Nitrogen 7 mg/dl (9-20); Calcium 7.6 mg/dl (8.4-10.2); Carbon Dioxide 14 mmol/L (22-30); Chloride 102 mmol/L (98-107); Estimated Creatinine Clearance 69 ml/min; Glucose 90 mg/dl (70-99); Potassium 4.9 mmol/L (3.5-5.1); Sodium 121 mmol/L (135-145); eGFR > 60.00
--- NOTE | 2024-11-26 04:41 | PTCARENOTE ---
Patient assessment unchanged from previous, labs sent, call cm within reach.
[2024-11-26] MEDS: SYNTHROID 88 MCG PO (05:06)
--- NOTE | 2024-11-26 08:01 | W.PN.HOSP.TC ---
Today's Communication/Plan
-
will continue in ICU for now
await nephrology decision as to next step in management of hyponatremia
follow BMP, repeat this morning and in AM
Assessment / Plan
Assessment / Plan
A/P: Patient is an 89y M with PMH significant for SIADH, ASCVD and A-Fib who presents to ED complaining of LLQ pain and noted to have hyponatremia.
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
Due to declining Na, Nephro requested transfer to ICU late yesterday afternoon.
SIADH
- Admit for further evaluation and treatment.
- Na on admission 119 (compared to baseline usually 125-130)-->117-->116-->114-->116-->117-->121
- Combination of pain response, increased fluid intake, etc.
- Urine studies: Osmo 419/Ur Na 91
- 3% saline ordered by nephrology
will defer initiation of Samsca to nephro
- Fluid restriction.
- Will resume salt tabs again (patient states that he has been off of these for at least 1 year - per PCP direction) as per nephro
- Nephrology input appreciated
- Follow for improvement in Na levels.
WBC 4.8-->3.9-->4.1k
LLQ Abdominal Pain
- Unclear etiology of chronic / recurrent symptoms.
- Patient reports constipation; however, current CT and review of prior imaging all note liquid stool in colon / rectum and not large amount of stool burden / constipation seen on imaging.
- No evidence of diverticulitis, etc. No tenderness on exam despite report of pain.
- Supportive care. Would hold further bowel regimen for now given liquid stool on imaging and improvement in symptoms
Has outpt appt with Dr. Nuñez in early December. ? vascular related. Call placed and discussed CT images with Dr. Graves, who felt that the radiologic images not typical for ischemic origin
- GI evaluation noted, they have signed off
CT scan 11/12: There is increased bibasilar reticular and nodular opacities which may represent acute pneumonitis superimposed on chronic interstitial disease. Findings can also be seen in the setting of aspiration.
Findings suggestive of coloenteritis/diarrheal illness.
Small hiatal hernia.
Cholelithiasis.
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
ASCVD
A-Fib s/p Ablation
- Stable. Continue current CV med regimen.
- s/p ablation and PPM placement.
- Continue amiodarone and Eliquis.
Hypothyroidism
- Continue current T4 replacement for now.
- TSH 7.19/free T4 2.17
BPH
- Stable. Continue tamsulosin.
DVT Prophylaxis: On Eliquis
Code Status: Full
Anticipated Discharge: > 48 hours
Subjective/Interval History
-
Date of Service: November 26, 2024
Awake, alert, No BM's past 24 hrs, but LLQ abd pain not currently active
Objective Data
-
Labs:
Laboratory Results
11/25/24 11/25/24 11/26/24
20:08 22:41 03:57
WBC 4.1 L
Hgb 11.9 L
Hct 33.4 L
Plt Count 173
Sodium 116 L* 117 L* 121 L
Potassium 4.9 4.7 4.9
Chloride 97 L 97 L 102
Carbon Dioxide 16 L 17 L 14 L*
BUN 8 L 8 L 7 L
Creatinine 0.7 0.7 0.7
Glucose 101 H 83 90
Calcium 7.2 L 7.4 L 7.6 L
Vital Signs:
Vital Signs
Temp Pulse Resp BP Pulse Ox
98.2 F 70 19 150/76 96
11/26/24 07:16 11/26/24 06:00 11/26/24 06:00 11/26/24 06:00 11/26/24 06:00
I&O
11/25/24 11/26/24 11/27/24
06:59 06:59 06:59
Intake Total 270 / 270
Output Total 400 / 400
Balance -130 / -130
Review of Systems
-
History Source: Patient and Coordinated Provider (discussed with CASSANDRA Figueroa)
Constitutional: Reports No Symptoms; Denies Fever
EENT: Reports No Symptoms Reported
Respiratory: Reports No Symptoms
Cardiac: Reports No Symptoms
Abdomen/GI: Reports Abdominal Pain (LLQ location, but none currently)
Physical Exam
-
General: Well Developed, Well Nourished and No Apparent Distress (sitting up in chair, appears less ill)
HEENT: Normocephalic, Atraumatic and Moist Mucous Membranes
Respiratory: Clear to Auscultation; Negative Wheezes, Rales or Rhonchi
Cardiac: Regular Rhythm and S1/S2
GI: Soft, Nontender, Nondistended and Normal Bowel Sounds
Musculoskeletal: No Clubbing, No Cyanosis and No Edema
Neuro: Awake, Alert and Oriented
--- NOTE | 2024-11-26 08:21 | CON.INTV ---
Addendum entered and electronically signed by Raymond Last MD 11/26/24 22:02:
UPDATE: Serum sodium was repeated at 6 PM and was 128. Compared to approximately 24 hours ago, this is a 12-14 mmol/L increase. I did review with nephrology (Dr. Washington) if this was grounds for overcorrection, however he did not feel that
D5W, dDAVP or continued close monitoring in the ICU was warranted.
Patient is appropriate for downgrade out of ICU to telemetry. Transfer orders placed and ICU charge nurse as well as patient's bedside nurse were updated. Transfer orders placed in [facility].
No additional recommendations at this time. Net Sql Developer/Pulmonary service will now sign off. Thank you for allowing us to be involved in the care of this patient. Please reconsult if there are any additional questions/concerns, or if patient's
respiratory status deteriorates.
Original Note:
Consultation
Consultation Request
Date/Time Consultation Requested: 11/25/20241757
Date/Time Consultation Performed: 11/26/2024 - 811
Requesting Provider: Dr. Serrano
Performing Provider: Dr. Last
Reason for Consultation: Severe hyponatremia
Medical History
-
Chief Complaint: Abdominal pain
History of Present Illness:
89-year-old male with a past medical history of CAD, hypertension, constipation, osteoporosis, chronic hyponatremia, iron deficiency anemia, A-fib with history of cardioversion + ablation now on chronic amiodarone and Eliquis, and osteoporosis who
presented with abdominal pain. Patient has a long history of chronic constipation with diarrhea as well. Previously used to see Dr. Nuñez with GI, last visit in April 2023. He is now coming in with left lower quadrant abdominal pain. He has
been taking laxatives at home and drinking increasing amounts of water, more than usual in an attempt to help alleviate his constipation. He was found to be significantly hyponatremic with initial sodium 119. Over the last several years, his
sodium has ranged between 125-132. Case discussed with nephrology and the patient was given 250 cc of 3% NS in the ER and admitted to the ICU for further care. Net Sql Developer service is now consulted for additional management/recommendations.
Patient was seen and evaluated this morning. Currently on room air breathing comfortably and sitting in chair in no acute distress. Currently denies abdominal pain. Still having watery stool which he says is common for him. Sodium this morning
was 121, increasing from 117 last night at 2241. Patient currently denies ANN, chest pain, SOB, nausea, fevers or chills.
PMHx: CAD, hypertension, constipation, osteoporosis, chronic hyponatremia, iron deficiency anemia, A-fib with history of cardioversion + ablation now on chronic amiodarone and Eliquis, osteoporosis
PSHx: Left total hip replacement, CABG, AVR, pacemaker, spinal surgery
Past Medical History
Past Medical History: Other (Above as per HPI)
Past Surgical History: Other (Above as per HPI)
Social History
Tobacco: Non-smoker
Alcohol: Occasional
Drug: None
Personal:
Family History
Family History: Cancer (Mother (unknown type)) and Other (Father: Cardiac history)
Allergies / Home Medications
Allergies
Allergy/AdvReac Type Severity Reaction Status Date / Time
hyoscyamine Allergy Unknown Verified 11/24/24 19:47
lisinopril Allergy Unknown Verified 11/24/24 19:47
losartan Allergy Unknown Verified 11/24/24 19:47
oxycodone Allergy Unknown Verified 11/24/24 19:47
sulfamethoxazole (From Allergy Unknown Verified 11/24/24 19:47
Bactrim)
trimethoprim (From Bactrim) Allergy Unknown Verified 11/24/24 19:47
Home Medications
�Medication �Instructions �Recorded �Confirmed �Last Taken �Type
Ferrous Gluconate 324 mg PO BID Supplement 03/16/21 11/24/24 11/23/24 History
acetaminophen 325 mg tablet 325 mg PO Q6HPRN PRN mild pain 03/16/21 11/24/24 11/24/24 History
amiodarone 200 mg tablet (Pacerone) 200 mg PO DAILY@1200 Arrhythmia 03/16/21 11/24/24 11/23/24 History
apixaban 5 mg tablet (Eliquis) 5 mg PO BID Blood clot 03/16/21 11/24/24 11/23/24 08:00 History
prevention/tx
ascorbic acid (vitamin C) 500 mg 500 mg PO DAILY@1200 Supplement 03/16/21 11/24/24 11/23/24 History
capsule
cyanocobalamin (vitamin B-12) 1,000 mcg PO DAILY@1200 Supplement 03/16/21 11/24/24 11/23/24 History
1,000 mcg tablet
folic acid 400 mcg tablet 0.8 mg PO DAILY Stroke 03/16/21 11/24/24 11/23/24 History
gabapentin 300 mg capsule 300 mg PO HS Neurological Condition 03/16/21 11/24/24 11/23/24 History
pravastatin 20 mg tablet 20 mg PO QPM High cholesterol 03/16/21 11/24/24 11/23/24 History
denosumab 60 mg/mL subcutaneous 60 mg SC [id number] OSTEOPEROSIS 11/12/24 11/24/24 Unknown History
syringe (Prolia)
levothyroxine 88 mcg tablet 88 mcg PO DAILY@06 Thyroid 11/12/24 11/26/24 11/23/24 History
tamsulosin 0.4 mg capsule 0.4 mg PO BID Urinary Issue 11/12/24 11/24/24 11/23/24 History
calcium carbonate (Calcium 600) 600 mg PO DAILY Supplement 11/24/24 11/24/24 11/23/24 History
multivitamin with minerals 1 tab PO DAILY Supplement 11/24/24 11/24/24 11/23/24 History
(Hair,Skin and Nails tablet)
sennosides 8.6 mg tablet (senna) 8.6 mg PO DAILYPRN PRN constipation 11/24/24 11/24/24 11/21/24 History
Review of Systems
-
History Source: Patient
All other systems: Negative unless noted
Vitals / Labs / Diagnostic Testing
Vital Signs
Temp Pulse Resp BP Pulse Ox
98.2 F 71 23 136/42 96
11/26/24 07:16 11/26/24 08:15 11/26/24 08:15 11/26/24 08:00 11/26/24 08:15
Lab Data
11/26/24 03:57
Diagnostic Testing:
Physical Exam
-
HEENT: Normocephalic and Anicteric
Cardiovascular: S1/S2, Rub (n) and Peripheral Edema (negative)
Respiratory: Clear, Wheeze (negative), Rales (negative) and Rhonchi (negative)
GI: Soft, Non Distended, Non Tender and Normal Bowel Sounds
Neurology: AO x 3 and Tremors (negative)
Skin: Warm and Dry
General: Respiratory Distress (negative), Comfortable, Fever (negative) and Chills (negative)
Assessment
-
Assessment: 89-year-old male with a past medical history of CAD, hypertension, constipation, osteoporosis, chronic hyponatremia, iron deficiency anemia, A-fib with history of cardioversion + ablation now on chronic amiodarone and Eliquis, and
osteoporosis who presented with abdominal pain. Patient has a long history of chronic constipation with diarrhea as well. Previously used to see Dr. Nuñez with GI, last visit in April 2023. He is now coming in with left lower quadrant
abdominal pain. He has been taking laxatives at home and drinking increasing amounts of water, more than usual in an attempt to help alleviate his constipation. He was found to be significantly hyponatremic with initial sodium 119. Over the last
several years, his sodium has ranged between 125-132. Case discussed with nephrology and the patient was given 250 cc of 3% NS in the ER and admitted to the ICU for further care. [employer] Developer service is now consulted for additional
management/recommendations.
Chronic conditions BUSINESS CONTINUITY ANALYST: CAD, hypertension, constipation, osteoporosis, chronic hyponatremia, iron deficiency anemia, A-fib with history of cardioversion + ablation now on chronic amiodarone and Eliquis, osteoporosis
Impression:
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
#Abdominal pain
#Hypothyroidism with abnormal TFTs (TSH: 7.19, free T4: 2.17)
#Leukopenia
#Anemia
#Metabolic acidosis with preserved anion gap likely due to diarrhea
#Hypertension
#Atrial fibrillation s/p cardioversion + ablation on amiodarone + Eliquis
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
Plan:
- Nephrology consulted and recommendations greatly appreciated well managing the correction of his serum sodium
- Cautiously corrected serum sodium to avoid overcorrection; ideally should not raise serum sodium by more than 10-12 mmol/L in 24 hours, and by no more than 16-18 mmol/L in 48 hours
- Continue serial chemistries to continue trending serum sodium
- Given that the patient's serum sodium is now >120, can liberalize the frequency of chemistry blood draws
- Replete electrolytes with K>4, Mg>2
- Monitor UOP and trend sCr and sHCO3 levels
- Maintain MAP>65
- Maintain SpO2 >90-94% - currently breathing comfortably on room air
- prn nebulized bronchodilators - not currently bronchospastic
- Incentive spirometer encouraged 10x per hour for at least 4 hrs a day
- The patient has evidence of bibasilar fibrosis, which was seen on prior CT abdomen/pelvis from 10/19/2015, and interstitial changes have now worsened when compared to most recent CT abdomen/pelvis on 11/12/2024. He denies a history of pulmonary
fibrosis nor a family history of interstitial lung disease. He denies a cough or shortness of breath. He is a non-smoker, denies any prior asbestos exposure. Prior occupation was and electrical installation supervisor but no known volatile chemical exposure or
any other inhalational irritants that he was exposed to.
- He is amenable to following up with me in the office for full PFTs and a dedicated CT chest which can be performed as an outpatient
- Recommend repeating TFTs as an outpatient to assure that TSH normalizes as it is 7.19 as of yesterday, otherwise his levothyroxine dose may need to be increased
- Maintain euglycemia with goal BG 140-180
- Trend H/H and transfuse if needed to keep Hb>7g/dL; keep plt>20k, unless there is concern for bleeding then keep plt>50k
- DVT ppx: Eliquis
Will continue to trend serum sodium level and as long as it remains >120�125 and is not overcorrected then patient will be downgraded to telemetry, as long as nephrology and hospitalist agree with disposition. Once patient is downgraded,
Net Sql Developer/Pulmonary service will then sign off. Please call back with any questions or concerns. As stated above, I will arrange for outpatient pulmonary office follow-up given the worsened bibasilar interstitial lung abnormalities seen on
recent CT abdomen/pelvis from 11/12/2024.
Total time spent today was 78 minutes for this encounter. Time includes reviewing laboratory test/imaging results, reviewing pertinent medical records, obtaining and reviewing medical history, performing an appropriate exam, ordering medications,
tests and procedures. Time also includes documentation of this encounter, coordinating patient care and communicating with other healthcare professionals. Total time does not include separately billed tests performed on this date of service.
[2024-11-26] MEDS: ELIQUIS 5 MG PO ×2 (08:30→19:52)
[2024-11-26] MEDS: FLOMAX 0.4 MG PO ×2 (08:30→19:52)
[2024-11-26] MEDS: FOLVITE 0.8 MG PO (08:30)
--- NOTE | 2024-11-26 09:48 | PTCARENOTE ---
Rec'd pt at 0700. Pt AAOx3, follows commands, BENAVIDES. Pt sitting OOB in chair. Monitor AV paced. Lungs CTA, pox 96% RA. +BS. Pt c/o LLQ 2/10 after eating breakfast, not requiring any pain meds at this time. Voiding yellow urine via urinal.
--- NOTE | 2024-11-26 09:51 | W.PN.NEPH.PH ---
Today's Communication / Plan
-
Samsca
Assessment/Plan
-
89y M with PMH significant for ASCVD, hypertension and A-Fib who presents to ED complaining of LLQ abdominal pain.
Sodium 119
Chronic hyponatremia with recurrent admissions
Previously on salt tablets
Impression.
Hyponatremia. 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
Abdominal pain.
Hypertension.
Atrial fibrillation.
Plan.
Status post hypertonic saline 100 cc bolus for symptomatic hyponatremia
BMP later this afternoon
Check bladder scan= 241
Will give Samsca
Hold hypertonic saline at this
Discussed with critical care team

31 minutes critical care time
-
-
Date of Service: November 26, 2024
CC / HPI / ROS
-
Chief Complaint:
Hyponatremia
History of Present Illness:
Abdominal pain presents with hyponatremia 117 improved to 121
Review of Systems:
No chest pain or shortness of breath mild abdominal pain
Labs
-
Labs:
WBC 4.1 10^3/uL (4.8-10.8) L 11/26/24 03:57
RBC 3.52 10^6/uL (4.70-6.10) L 11/26/24 03:57
Hgb 11.9 g/dL (13.0-18.0) L 11/26/24 03:57
Hct 33.4 % (39.0-52.0) L 11/26/24 03:57
Plt Count 173 10^3/uL (130-400) 11/26/24 03:57
eGFR > 60.00 11/26/24 03:57
Albumin 3.7 g/dl (3.5-5.0) 11/24/24 19:59
Physical Exam
-
Vital Signs:
Vital Signs
Temp Pulse Resp BP Pulse Ox
98.2 F 71 23 136/42 96
11/26/24 07:16 11/26/24 08:15 11/26/24 08:15 11/26/24 08:00 11/26/24 08:15
Respiratory:: Bilateral: CTA
Lung Excursion:: Normal
Abdomen:: Soft
Bowel Sounds:: Normal
Extremity Edema:: None: Bilateral:
Arroyo Catheter: No
[2024-11-26] MEDS: SAMSCA 15 MG PO (10:33)
[2024-11-26] MEDS: DULCOLAX 5 MG PO (12:33)
[2024-11-26] MEDS: PACERONE 200 MG PO (12:34)
--- NOTE | 2024-11-26 15:11 | PTCARENOTE ---
Pt bowel fixated this am, stating his stomach is 'rumbling' and the LLQ pain means he's constipated and needs a laxative. Explained care plan to pt, pt again requesting laxative. 1230-Ducolax PO given, 10 minutes later pt had pulled call cm in
bathroom, pt with large loose stool in toilet and on the floor. Pt helped with care. Pt stated that the laxative worked fast, explained to pt that the laxative doesn't work that quickly and again went over plan of care. Pt with 2 more loose stools
in bathroom.
[2024-11-26] MEDS: PRAVACHOL 20 MG PO (17:13)
[2024-11-26 18:32] LABS: Blood Urea Nitrogen 8 mg/dl (9-20); Calcium 8.3 mg/dl (8.4-10.2); Carbon Dioxide 19 mmol/L (22-30); Chloride 103 mmol/L (98-107); Estimated Creatinine Clearance 53 ml/min; Glucose 113 mg/dl (70-99); Potassium 4.8 mmol/L (3.5-5.1); Sodium 128 mmol/L (135-145); eGFR > 60.00
--- NOTE | 2024-11-26 21:00 | PTCARENOTE ---
Addendum entered by Sandy Gomes RN 11/26/24 21:48:
pt OOB by himself, uses the bathroom as needed.
Original Note:
rec`d pt at 1900 AAOx3 OOB in chair. pt hard of hearing. AV paced on monitor. RA POX high 90s. PIVS flushed and patent. call cm in reach, safe environment maintained. Spoke to Dr Last and said ok to downgrade. aware of last sodium of 128.
[2024-11-26] MEDS: NEURONTIN 300 MG PO (21:05)
[2024-11-27] VITALS (8 sets, daily range): BP systolic 92–156; BP diastolic 44–83; BMI 28.0
[2024-11-27 03:38] LABS: % Basophils 0.7 % (0-2); % Eosinophils 1.3 % (0-6); % Immature Granulocytes 0.4 % (0-0.5); % Lymphocytes 19.4 % (20.5-51.1); % Monocytes 12.9 % (1.7-9.3); % Neutrophils 65.3 % (42.2-75.2); Absolute Eosinophils 0.1 10^3/uL (0-0.7); Absolute Lymphocytes 0.9 10^3/uL (1.2-3.4); Absolute Monocytes 0.6 10^3/uL (0.1-0.6); Absolute Neutrophils 2.9 10^3/uL (1.4-6.5); Hematocrit 37.1 % (39.0-52.0); Hemoglobin 12.7 g/dL (13.0-18.0); Mean Corp Hgb Conc. 34.2 g/dL (33.0-37.0); Mean Corpuscular Hgb 33.2 pg (27.0-31.0); Mean Corpuscular Volume 97.1 fL (80.0-94.0); Mean Platelet Volume 9.4 fL (7.4-10.4); Nucleated Red Blood Cells % 0 % (-); Platelet Count 179 10^3/uL (130-400); Red Blood Cell Count 3.82 10^6/uL (4.70-6.10); White Blood Cell Count 4.5 10^3/uL (4.8-10.8)
[2024-11-27 04:07] LABS: Blood Urea Nitrogen 10 mg/dl (9-20); Calcium 8.7 mg/dl (8.4-10.2); Carbon Dioxide 22 mmol/L (22-30); Chloride 108 mmol/L (98-107); Estimated Creatinine Clearance 48 ml/min; Glucose 88 mg/dl (70-99); Magnesium 2.3 mg/dl (1.6-2.3); Potassium 5.1 mmol/L (3.5-5.1); Sodium 133 mmol/L (135-145); eGFR > 60.00
[2024-11-27] MEDS: SYNTHROID 88 MCG PO (05:27)
[2024-11-27] MEDS: FOLVITE 0.8 MG PO (09:35)
[2024-11-27] MEDS: FLOMAX 0.4 MG PO ×2 (09:35→20:11)
[2024-11-27] MEDS: ELIQUIS 5 MG PO ×2 (09:35→20:11)
--- NOTE | 2024-11-27 11:07 | PTCARENOTE ---
Patient arrived to unit. VSS. Patient AAOx4, patient tolerated ambulating in room. free from falls. call cm in reach. safety maintained.
[2024-11-27] MEDS: PACERONE 200 MG PO (11:26)
--- NOTE | 2024-11-27 14:49 | W.PN.HOSP.TC ---
Today's Communication/Plan
-
recheck labs in AM
CRS consult
resume NaCl tabs
Assessment / Plan
Assessment / Plan
A/P: Patient is an 89y M with PMH significant for SIADH, ASCVD and A-Fib who presents to ED complaining of LLQ pain and noted to have hyponatremia.
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
Due to declining Na, Nephro requested transfer to ICU late yesterday, doing better, now transferred OOICU
SIADH
- Admit for further evaluation and treatment.
- Na on admission 119 (compared to baseline usually 125-130)-->117-->116-->114-->116-->117-->121-given 1 dose of Samsca-->128-->133
- Combination of pain response, increased fluid intake, etc.
- Urine studies: Osmo 419/Ur Na 91
- Fluid restriction. Discussed with nephro, okay to resume NaCl tabs
- Will resume salt tabs again (patient states that he has been off of these for at least 1 year - per PCP direction) as per nephro
- Nephrology input appreciated
- Follow for improvement in Na levels.
WBC 4.8-->3.9-->4.1-->4.5k
LLQ Abdominal Pain
- Unclear etiology of chronic / recurrent symptoms.
- Patient reports constipation; however, current CT and review of prior imaging all note liquid stool in colon / rectum and not large amount of stool burden / constipation seen on imaging.
Pain intensified when he needed to move bowels, then improved and is currently resolved
- No evidence of diverticulitis, etc. No tenderness on exam despite report of pain.
- Supportive care. Would hold further bowel regimen for now given liquid stool on imaging and improvement in symptoms
Has outpt appt with Dr. Nuñez in early December. ? vascular related. Call placed and discussed CT images with Dr. Graves, who felt that the radiologic images not typical for ischemic origin
- GI evaluation noted, they have signed off. Plan CRS consult tomorrow
CT scan 11/12: There is increased bibasilar reticular and nodular opacities which may represent acute pneumonitis superimposed on chronic interstitial disease. Findings can also be seen in the setting of aspiration.
Findings suggestive of coloenteritis/diarrheal illness.
Small hiatal hernia.
Cholelithiasis.
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
ASCVD
A-Fib s/p Ablation
- Stable. Continue current CV med regimen.
- s/p ablation and PPM placement.
- Continue amiodarone and Eliquis.
Hypothyroidism
- Continue current T4 replacement for now.
- TSH 7.19/free T4 2.17
BPH
- Stable. Continue tamsulosin.
DVT Prophylaxis: On Eliquis
Code Status: Full
Anticipated Discharge: 24 - 48 hours
Subjective/Interval History
-
Date of Service: November 27, 2024
Pt has been transferred to tele
Objective Data
-
Labs:
Laboratory Results
11/27/24
03:21
WBC 4.5 L
Hgb 12.7 L
Hct 37.1 L
Plt Count 179
Sodium 133 L
Potassium 5.1
Chloride 108 H
Carbon Dioxide 22
BUN 10
Creatinine 0.9
Glucose 88
Calcium 8.7
Vital Signs:
Vital Signs
Temp Pulse Resp BP Pulse Ox
98.7 F 81 18 122/83 96
11/27/24 11:06 11/27/24 11:06 11/27/24 11:06 11/27/24 11:26 11/27/24 11:06
I&O
11/26/24 11/27/24 11/28/24
06:59 06:59 06:59
Intake Total 270 / 270 580 / 580
Output Total 400 / 400 400 / 400
Balance -130 / -130 180 / 180
Review of Systems
-
History Source: Patient
Constitutional: Reports No Symptoms; Denies Fever
EENT: Reports No Symptoms Reported
Respiratory: Reports No Symptoms
Cardiac: Reports No Symptoms
Abdomen/GI: Reports Abdominal Pain (LLQ location, but none currently)
Physical Exam
-
General: Well Developed, Well Nourished and No Apparent Distress (generally looks better)
HEENT: Normocephalic, Atraumatic and Moist Mucous Membranes
Respiratory: Clear to Auscultation; Negative Wheezes, Rales or Rhonchi
Cardiac: Regular Rhythm and S1/S2
GI: Soft, Nontender, Nondistended and Normal Bowel Sounds
Musculoskeletal: No Clubbing, No Cyanosis and No Edema
Neuro: Awake, Alert and Oriented
[2024-11-27] MEDS: PRAVACHOL 20 MG PO (17:14)
[2024-11-27] MEDS: TYLENOL 650 MG PO (19:10)
[2024-11-27] MEDS: SODIUM CHLORIDE 1 GRAM PO (20:11)
[2024-11-27] MEDS: NEURONTIN 300 MG PO (20:12)
[2024-11-28 03:26] VITALS: BP 143/74
[2024-11-28] MEDS: SYNTHROID 88 MCG PO (05:25)
[2024-11-28 07:39] VITALS: BP 127/67
--- NOTE | 2024-11-28 08:34 | PTCARENOTE ---
Pt reported room spinning this AM was unable to get OOB to use bathroom. Was incontinent of mostly liquid stool. Attempted orthostatic BPs, but he was unable to tolerate OOB. Became nauseous and was retching, and had to lay back down. Current BP
lying flat 150/77 but stills reports outside the window is spinning. notified.
--- NOTE | 2024-11-28 09:08 | WOUNDNOTE ---
[facility] RN note: Patient admitted with acute on chronic hyponatremia, LLQ pain.
See H&P for complete history.
PMH: ASCVD, HTN, a fib, s/p ablation, aortic stenosis, BPH, CABG, PPM placement, aortic valve replacement, partial bowel resection, L STEPHANE.
Wound Location and type/assessment: Patient admitted with: newly healed red scar/white scab on spine suspect from friction on spinal process. Coccyx/buttocks mild MASD. L lateral ankle blanchable mild red and intact.
Appetite: poor.
Pressure redistribution devices in place: [employer] Accumax. Patient turns self in bed.
Plan: Protective silicone border foam applied to spine and L lateral ankle. Cleansed coccyx skin with saline. Heels off bed with pillow. Air chair cushion given. Instructed patient to use pillow or air chair cushion on back of the chair to pad
spine and pressure injury prevention measures. Discussed with CASSANDRA Hernandez.
Care plan to be updated, will sign off. Call if needed.
[2024-11-28] MEDS: SODIUM CHLORIDE 1 GRAM PO ×2 (10:21→21:14)
[2024-11-28] MEDS: FLOMAX 0.4 MG PO ×2 (10:22→21:14)
[2024-11-28] MEDS: ELIQUIS 5 MG PO ×2 (10:22→21:14)
[2024-11-28] MEDS: FOLVITE 0.8 MG PO (10:22)
[2024-11-28 11:06] VITALS: BP 148/88
--- NOTE | 2024-11-28 11:33 | W.PN.HOSP.TC ---
Addendum entered and electronically signed by Easton Serrano MD 11/28/24 11:49:
Stacy turner was called and updated to current situation 11/28
Original Note:
Today's Communication/Plan
-
Consult CRS regarding bowel
recheck labs
Neuro consult for ?Vertigo with CT scan of brain
hold dc
Assessment / Plan
Assessment / Plan
A/P: Patient is an 89y M with PMH significant for SIADH, ASCVD and A-Fib who presents to ED complaining of LLQ pain and noted to have hyponatremia.
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
Due to declining Na, Nephro requested transfer to ICU doing better, has now been transferred OOICU
SIADH
- Na on admission 119 (compared to baseline usually 125-130)-->117-->116-->114-->116-->117-->121-given 1 dose of Samsca-->128-->133
- Combination of pain response, increased fluid intake, etc.
- Urine studies: Osmo 419/Ur Na 91
- Fluid restriction. Discussed with nephro, okay to resume NaCl tabs
- Nephrology input appreciated
- Follow for improvement in Na levels.
WBC 4.8-->3.9-->4.1-->4.5k
11/28 Today pt is complaining of severe and overwhelming dizziness, especially when looks to the left. Most likely this is vertigo, will order CT scan and request neuro opinion
Start Meclizine pending neuro eval
LLQ Abdominal Pain
- Unclear etiology of chronic / recurrent symptoms.
- Patient reports constipation; however, current CT and review of prior imaging all note liquid stool in colon / rectum and not large amount of stool burden / constipation seen on imaging.
Pain intensified when he needed to move bowels, then improved and is currently resolved
- No evidence of diverticulitis, etc. No tenderness on exam despite report of pain.
- Supportive care. Would hold further bowel regimen for now given liquid stool on imaging and improvement in symptoms
Has outpt appt with Dr. Nuñez in early December. ? vascular related. Call placed and discussed CT images with Dr. Graves, who felt that the radiologic images not typical for ischemic origin
- GI evaluation noted, they have signed off. Plan CRS consult discussed with Dr. Melgar.
Concern that the hyponatremia could be associated with pain and that the pain is coming from the lower bowel in the area of the sigmoid-descending colon area. ?Ischemic watershed area
CT scan 11/12: There is increased bibasilar reticular and nodular opacities which may represent acute pneumonitis superimposed on chronic interstitial disease. Findings can also be seen in the setting of aspiration.
Findings suggestive of coloenteritis/diarrheal illness.
Small hiatal hernia.
Cholelithiasis.
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
ASCVD
A-Fib s/p Ablation
- Stable. Continue current CV med regimen.
- s/p ablation and PPM placement.
- Continue amiodarone and Eliquis.
Hypothyroidism
- Continue current T4 replacement for now.
- TSH 7.19/free T4 2.17
BPH
- Stable. Continue tamsulosin.
DVT Prophylaxis: On Eliquis
hold dc due to severe Vertigo
Neuro consult
Code Status: Full
Anticipated Discharge: 24 - 48 hours
Subjective/Interval History
-
Date of Service: November 28, 2024
complaining of severe dizziness. No abdominal pain today
Objective Data
-
Labs:
Laboratory Results
11/28/24
11:17
Sodium Pending
Potassium Pending
Chloride Pending
Carbon Dioxide Pending
BUN Pending
Creatinine Pending
Glucose Pending
Calcium Pending
Vital Signs:
Vital Signs
Temp Pulse Resp BP Pulse Ox
97.6 F 102 18 148/88 94
11/28/24 11:06 11/28/24 11:06 11/28/24 11:06 11/28/24 11:06 11/28/24 11:06
I&O
11/27/24 11/28/24 11/29/24
06:59 06:59 06:59
Intake Total 580 / 580 480 / 480
Output Total 400 / 400
Balance 180 / 180 480 / 480
Review of Systems
-
History Source: Patient
Constitutional: Reports No Symptoms; Denies Fever
EENT: Reports No Symptoms Reported
Respiratory: Reports No Symptoms
Cardiac: Reports No Symptoms
Abdomen/GI: Reports Abdominal Pain (LLQ location, but none currently, totally resolved)
Neuro: Reports Dizzy (most pronounced when looks to the left)
Physical Exam
-
General: Well Developed, Well Nourished and No Apparent Distress (generally looks better)
HEENT: Normocephalic, Atraumatic, Moist Mucous Membranes and Other (left lateral nystagmus)
Respiratory: Clear to Auscultation; Negative Wheezes, Rales or Rhonchi
Cardiac: Regular Rhythm and S1/S2
GI: Soft, Nontender, Nondistended and Normal Bowel Sounds
Musculoskeletal: No Clubbing, No Cyanosis and No Edema
Neuro: Awake, Alert and Oriented
[2024-11-28 12:14] LABS: Blood Urea Nitrogen 13 mg/dl (9-20); Calcium 7.9 mg/dl (8.4-10.2); Carbon Dioxide 20 mmol/L (22-30); Chloride 107 mmol/L (98-107); Estimated Creatinine Clearance 53 ml/min; Glucose 100 mg/dl (70-99); eGFR > 60.00
[2024-11-28 12:24] LABS: Potassium 4.5 mmol/L (3.5-5.1); Sodium 134 mmol/L (135-145)
[2024-11-28] MEDS: PACERONE 200 MG PO (13:12)
--- NOTE | 2024-11-28 13:37 | CON.CRS ---
Consultation
-
Date/Time Consultation Requested: 11/28/2024,
Date/Time Consultation Performed: 11/28/2024,
Requesting Provider: Easton Serrano MD
Performing Provider: Easton Melgar MD
Reason for Consultation: colitis
Medical History
-
Chief Complaint: LLQ pain
History of Present Illness:
89-year-old male with a history of sigmoidectomy for pneumatosis coli [address] Scruggs of the [facility] with chronic intermittent left lower quadrant pain relieved with bowel movements. This has been going on for years
but has been worse since August. The pain is currently gone as he has had bowel function since admission. Colonoscopies in the past have been by Dr. Morales, and he is due to see Dr. Nuñez in the office in the near future. On exam he has no
abdominal tenderness or distention. His most recent imaging was a CT from a few weeks ago which I did review. Nothing obvious in the GI tract on the CT. It was read as possible enterocolitis given some air-fluid levels in the colon. There is no
bowel wall thickening. There is no pneumatosis. There is no free air.
Past Medical History
Past Medical History: Other (ASCVD, Aortic Stenosis, A-Fib s/p Ablation, Hypothyroidism, SIADH, BPH)
Past Surgical History: Other (CABG, PVI Ablation, PPM, Placement Aortic Valve Replacement, Partial Bowel Resection (pneumatosis intestinalis), Left STEPHANE (x 2))
Social History
Tobacco: Non-Smoker
Alcohol: Occasional
Drug: None
Family History
Family History: Reviewed & Not Pertinent
Allergies / Home Medications
Allergy/AdvReac Type Severity Reaction Status Date / Time
hyoscyamine Allergy Unknown Verified 11/24/24 19:47
lisinopril Allergy Unknown Verified 11/24/24 19:47
losartan Allergy Unknown Verified 11/24/24 19:47
oxycodone Allergy Unknown Verified 11/24/24 19:47
sulfamethoxazole (From Allergy Unknown Verified 11/24/24 19:47
Bactrim)
trimethoprim (From Bactrim) Allergy Unknown Verified 11/24/24 19:47
�Medication �Instructions �Recorded �Confirmed �Type
Ferrous Gluconate 324 mg PO BID Supplement 03/16/21 11/24/24 History
acetaminophen 325 mg tablet 325 mg PO Q6HPRN PRN mild pain 03/16/21 11/24/24 History
amiodarone 200 mg tablet (Pacerone) 200 mg PO DAILY@1200 Arrhythmia 03/16/21 11/24/24 History
apixaban 5 mg tablet (Eliquis) 5 mg PO BID Blood clot 03/16/21 11/24/24 History
prevention/tx
ascorbic acid (vitamin C) 500 mg 500 mg PO DAILY@1200 Supplement 03/16/21 11/24/24 History
capsule
cyanocobalamin (vitamin B-12) 1,000 mcg PO DAILY@1200 Supplement 03/16/21 11/24/24 History
1,000 mcg tablet
folic acid 400 mcg tablet 0.8 mg PO DAILY Stroke 03/16/21 11/24/24 History
gabapentin 300 mg capsule 300 mg PO HS Neurological Condition 03/16/21 11/24/24 History
pravastatin 20 mg tablet 20 mg PO QPM High cholesterol 03/16/21 11/24/24 History
denosumab 60 mg/mL subcutaneous 60 mg SC [id number] OSTEOPEROSIS 11/12/24 11/24/24 History
syringe (Prolia)
levothyroxine 88 mcg tablet 88 mcg PO DAILY@06 Thyroid 11/12/24 11/26/24 History
tamsulosin 0.4 mg capsule 0.4 mg PO BID Urinary Issue 11/12/24 11/24/24 History
calcium carbonate (Calcium 600) 600 mg PO DAILY Supplement 11/24/24 11/24/24 History
multivitamin with minerals 1 tab PO DAILY Supplement 11/24/24 11/24/24 History
(Hair,Skin and Nails tablet)
sennosides 8.6 mg tablet (senna) 8.6 mg PO DAILYPRN PRN constipation 11/24/24 11/24/24 History
Review of Systems
-
History Source: Patient
Abdomen/GI: Abdominal Pain
A 10 point review of systems was completed, and was negative except as per HPI.
Physical Exam
Vital Signs
Temp 97.6 F 11/28/24 11:06
Pulse 102 11/28/24 11:06
Resp Rate 18 11/28/24 11:06
Blood pressure 148/88 11/28/24 11:06
SaO2 94 11/28/24 11:06
11/27/24 11/28/24 11/29/24
06:59 06:59 06:59
Actual Weight 74 kg
Body Mass Index (BMI) 28.0
Lab Results / Allergies
11/27/24 03:21
11/28/24 11:46
WBC 4.5 10^3/uL (4.8-10.8) L 11/27/24 03:21
Hgb 12.7 g/dL (13.0-18.0) L 11/27/24 03:21
Hct 37.1 % (39.0-52.0) L 11/27/24 03:21
Plt Count 179 10^3/uL (130-400) 11/27/24 03:21
Abs Immat Gran (auto) 0.0 10^3/uL (0-0.05) 11/27/24 03:21
Neutrophils % 65.3 % (42.2-75.2) 11/27/24 03:21
Allergy/AdvReac Type Severity Reaction Status Date / Time
hyoscyamine Allergy Unknown Verified 11/24/24 19:47
lisinopril Allergy Unknown Verified 11/24/24 19:47
losartan Allergy Unknown Verified 11/24/24 19:47
oxycodone Allergy Unknown Verified 11/24/24 19:47
sulfamethoxazole (From Allergy Unknown Verified 11/24/24 19:47
Bactrim)
trimethoprim (From Bactrim) Allergy Unknown Verified 11/24/24 19:47
Physical Exam
General: Well Developed, Well Nourished and No Apparent Distress
GI: Soft, Non Tender and Non Distended
Skin: Warm and Dry
Data Reviewed
-
CT Scan: Image Personally Visualized and interpreted, Report Reviewed by me and Discussed with Patient
Labs: Labs Reviewed by me, Discussed with Physician and Discussed with Patient
Old Records: Reviewed
Assessment / Plan
-
The etiology of his discomfort is unclear. There is no need for urgent surgical intervention. Recommend following up with Dr. Johnson in the office as planned as an outpatient for further recommendations from GI perspective. Will sign off for now.
--- NOTE | 2024-11-28 15:14 | W.PN.NEPH.PH ---
Today's Communication / Plan
-
follow labs
Assessment/Plan
-
89y M with PMH significant for ASCVD, hypertension and A-Fib who presents to ED complaining of LLQ abdominal pain.
Sodium 119
Chronic hyponatremia with recurrent admissions
Previously on salt tablets
Impression.
Hyponatremia. 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
Abdominal pain.
Hypertension.
Atrial fibrillation.
Plan.
sodium stable 134
follow bladder scan= 241 on 11/25
suspect severe hyponatremia from SIADH(u osmo 419) with abd pain and increased fluid intake
TSH slightly up, will need repeat out pt, LT4 adjustment per primary
maintain FR 48ounces/day
Bp stable
new vertigo-possible BPPV, neuro consulted
calcium slightly low, check alb for correction
follow labs
d/c plan per primary
-
-
Date of Service: November 28, 2024
CC / HPI / ROS
-
Chief Complaint:
Hyponatremia
History of Present Illness:
sodium better at 134
Bp stable
no fever
osmin 7.9
Review of Systems:
c/o vertigo specially when looking left side
No chest pain or shortness of breath mild abdominal pain
Labs
-
Labs:
WBC 4.5 10^3/uL (4.8-10.8) L 11/27/24 03:21
RBC 3.82 10^6/uL (4.70-6.10) L 11/27/24 03:21
Hgb 12.7 g/dL (13.0-18.0) L 11/27/24 03:21
Hct 37.1 % (39.0-52.0) L 11/27/24 03:21
Plt Count 179 10^3/uL (130-400) 11/27/24 03:21
Sodium 134 mmol/L (135-145) L 11/28/24 11:46
Potassium 4.5 mmol/L (3.5-5.1) 11/28/24 11:46
Chloride 107 mmol/L (98-107) 11/28/24 11:46
Carbon Dioxide 20 mmol/L (22-30) L 11/28/24 11:46
BUN 13 mg/dl (9-20) 11/28/24 11:46
Creatinine 0.8 mg/dL (0.7-1.3) 11/28/24 11:46
eGFR > 60.00 11/28/24 11:46
Glucose 100 mg/dl (70-99) H 11/28/24 11:46
Calcium 7.9 mg/dl (8.4-10.2) L 11/28/24 11:46
Phosphorus 4.0 mg/dl (2.5-4.5) 11/27/24 03:21
Albumin 3.7 g/dl (3.5-5.0) 11/24/24 19:59
Physical Exam
-
Vital Signs:
Vital Signs
Temp Pulse Resp BP Pulse Ox
97.6 F 102 18 148/88 94
11/28/24 11:06 11/28/24 11:06 11/28/24 11:06 11/28/24 11:06 11/28/24 11:06
Cardiovascular:: Regular rate and rhythm
Respiratory:: Bilateral: CTA
Lung Excursion:: Normal
Abdomen:: Soft
Extremity Edema:: None: Bilateral:
Arroyo Catheter: No
Other Findings::
mild left lateral gaze nystagmus
[2024-11-28] MEDS: ANTIVERT 12.5 MG PO ×2 (15:25→21:14)
[2024-11-28 15:52] VITALS: BP 109/57
[2024-11-28 16:12] LABS: Albumin 3.8 g/dl (3.5-5.0)
--- NOTE | 2024-11-28 16:48 | CM ---
Chart reviewed and patient may benefit from PT/OT evaluations, patient has declined visiting nurses at discharge.
Plan; Home when stable, will follow with patient progress.
[2024-11-28] MEDS: PRAVACHOL 20 MG PO (17:43)
[2024-11-28] MEDS: DELTASONE 50 MG PO (18:11)
--- NOTE | 2024-11-28 19:04 | CON.MD ---
Consultation - Medical
-
Full consult to be dictated.
History, vitals, labs, imaging reviewed. Patient seen and examined.
Assessment/plan: 89-year-old male with a history of sigmoidectomy for pneumatosis coli [address] Scruggs of the [facility] with chronic intermittent left lower quadrant pain relieved with bowel movements. This has been
going on for years but has been worse since August. The pain is currently gone as he has had bowel function since admission. Colonoscopies in the past have been by Dr. Morales, and he is due to see Dr. Nuñez in the office in the near future. On
exam he has no abdominal tenderness or distention. His most recent imaging was a CT from a few weeks ago which I did review. Nothing obvious in the GI tract on the CT. It was read as possible enterocolitis given some air-fluid levels in the
colon. There is no bowel wall thickening. There is no pneumatosis. There is no free air. In my opinion, the etiology of his discomfort is unclear. There is no need for urgent surgical intervention. Recommend following up with Dr. Johnson in the
office as planned as an outpatient for further recommendations from GI perspective. Will sign off for now.
Thanks.
Consultation
-
Date/Time Consultation Requested: 11/28/2024.
Date/Time Consultation Performed: 11/28/2024.
Reason for Consultation: Left-sided abdominal pain
--- NOTE | 2024-11-28 19:18 | CON.NEURO ---
Neuro Assessment/Plan
Assessment
vestibular neuritis right ear (constant left beating nystagmus
prednisone 50 mg x5 days tentatively, can stop early if symptoms resolved- discussed that osteoporosis is a complication of long-term steroids, and a few days will not meaningfully contribute; discussed other options including shorter treatment
course, or meclizine until it heals on it's own
Afib on Eliquis
left pronator drift of uncler chronicity/significance, I don't believe his vertigo is caused by stroke, nor would finding a lacunar stroke on MRI change the management
Consultation
Order
Date of Consultation: 11/28/24
Requesting Provider: Easton Serrano
Reason for Consult: Vertigo
Subjective/Objective
Subjective Data
Date of Service: November 28, 2024
89y M with PMH significant for SIADH, ASCVD and A-Fib who presents to ED complaining of LLQ pain and noted to have hyponatremia. woke up this morning with severe constant vertigo, worse with left gaze, relieved by right gaze/looking out the
window. no vision loss, diplopia, tinnitus, hearing loss, weakness, or numbness. took meclizine and afterwards only dizzy with movement or laying supine
history of polymyalgia rheumatica, long-term prednisone, osteoporosis, vertebral fracture, and hesitant to take prednisone again
Objective Data
Vital Signs
Temp Pulse Resp BP Pulse Ox
36.3 C 78 20 109/57 96
11/28/24 15:52 11/28/24 15:52 11/28/24 15:52 11/28/24 15:52 11/28/24 15:52
Lab Results
11/27/24 03:21
11/28/24 11:46
Sodium 134 mmol/L (135-145) L 11/28/24 11:46
Potassium 4.5 mmol/L (3.5-5.1) 11/28/24 11:46
BUN 13 mg/dl (9-20) 11/28/24 11:46
Glucose 100 mg/dl (70-99) H 11/28/24 11:46
Calcium 7.9 mg/dl (8.4-10.2) L 11/28/24 11:46
Phosphorus 4.0 mg/dl (2.5-4.5) 11/27/24 03:21
Patient Allergies
hyoscyamine Allergy (Verified 11/24/24 19:47)
Unknown
lisinopril Allergy (Verified 11/24/24 19:47)
Unknown
losartan Allergy (Verified 11/24/24 19:47)
Unknown
oxycodone Allergy (Verified 11/24/24 19:47)
Unknown
sulfamethoxazole (From Bactrim) Allergy (Verified 11/24/24 19:47)
Unknown
trimethoprim (From Bactrim) Allergy (Verified 11/24/24 19:47)
Unknown
Physical Exam
-
Awake/alert, speech clear
face symmetric
full strength b/l UE/LE, left pronator drift,
sensation intact to touch
Medications
-
Active Medications
Generic Name Dose Route Start Last Admin
Trade Name Freq PRN Reason Stop Dose Admin
Acetaminophen 650 mg 11/25/24 02:03 11/27/24 19:10
Acetaminophen 325 Mg Tablet PO 12/23/24 02:02 650 mg
Q4HPRN PRN Administration
Mild Pain / Temp > 101
Amiodarone HCl 200 mg 11/25/24 12:00 11/28/24 13:12
Amiodarone 200 Mg Tablet PO 12/23/24 11:59 200 mg
DAILY@1200 DENTON Administration
Apixaban 5 mg 11/25/24 08:00 11/28/24 10:22
Apixaban (Eliquis) 5 Mg Tablet PO 12/23/24 07:59 5 mg
BID DENTON Administration
Bisacodyl 5 mg 11/25/24 09:59 11/26/24 12:33
Bisacodyl 5 Mg Enteric Coated Tablet PO 12/23/24 09:58 5 mg
DAILYPRN PRN Administration
constipation
Folic Acid 0.8 mg 11/25/24 08:00 11/28/24 10:22
Folic Acid 0.4 Mg Tablet PO 12/23/24 07:59 0.8 mg
DAILY DENTON Administration
Gabapentin 300 mg 11/25/24 22:00 11/27/24 20:12
Gabapentin 300 Mg Capsule PO 12/23/24 21:59 300 mg
HS DENTON Administration
Hydromorphone HCl 0.5 mg 11/25/24 02:03
Hydromorphone 0.5 Mg/0.5 Ml Syringe IV 12/09/24 02:02
Q4HPRN PRN
Severe Pain
Levothyroxine Sodium 88 mcg 11/25/24 06:00 11/28/24 05:25
Levothyroxine 88 Mcg Tablet PO 12/23/24 05:59 88 mcg
DAILY @ 0600 DENTON Administration
Meclizine HCl 12.5 mg 11/28/24 16:00 11/28/24 15:25
Meclizine 12.5 Mg Tablet PO 12/26/24 15:59 12.5 mg
TID DENTON Administration
Pravastatin Sodium 20 mg 11/25/24 18:00 11/28/24 17:43
Pravastatin 20 Mg Tablet PO 12/23/24 17:59 20 mg
QPM DENTON Administration
Prednisone 50 mg 11/28/24 18:05 11/28/24 18:11
Prednisone 50 Mg Tablet PO 12/02/24 08:01 50 mg
DAILY DENTON Administration
Sennosides 17.2 mg 11/25/24 09:59
Sennosides (Senokot) 8.6 Mg Tablet PO 12/23/24 09:59
DAILY PRN
constipation
Sodium Chloride 0 flush 11/24/24 23:00
Sodium Chloride 0.9% (Flush) Syringe IV 12/22/24 22:59
PER PROTOCOL DENTON
Sodium Chloride 1 gram 11/27/24 20:00 11/28/24 10:21
Sodium Chloride 1 Gram Tablet PO 12/25/24 19:59 1 gram
BID DENTON Administration
Tamsulosin HCl 0.4 mg 11/25/24 08:00 11/28/24 10:22
Tamsulosin 0.4 Mg Capsule PO 12/23/24 07:59 0.4 mg
BID DENTON Administration
Home Medications
�Medication �Instructions �Recorded
Ferrous Gluconate 324 mg PO BID Supplement 03/16/21
acetaminophen 325 mg tablet 325 mg PO Q6HPRN PRN mild pain 03/16/21
amiodarone 200 mg tablet (Pacerone) 200 mg PO DAILY@1200 Arrhythmia 03/16/21
apixaban 5 mg tablet (Eliquis) 5 mg PO BID Blood clot 03/16/21
prevention/tx
ascorbic acid (vitamin C) 500 mg 500 mg PO DAILY@1200 Supplement 03/16/21
capsule
cyanocobalamin (vitamin B-12) 1,000 mcg PO DAILY@1200 Supplement 03/16/21
1,000 mcg tablet
folic acid 400 mcg tablet 0.8 mg PO DAILY Stroke 03/16/21
gabapentin 300 mg capsule 300 mg PO HS Neurological Condition 03/16/21
pravastatin 20 mg tablet 20 mg PO QPM High cholesterol 03/16/21
denosumab 60 mg/mL subcutaneous 60 mg SC [id number] OSTEOPEROSIS 11/12/24
syringe (Prolia)
levothyroxine 88 mcg tablet 88 mcg PO DAILY@06 Thyroid 11/12/24
tamsulosin 0.4 mg capsule 0.4 mg PO BID Urinary Issue 11/12/24
calcium carbonate (Calcium 600) 600 mg PO DAILY Supplement 11/24/24
multivitamin with minerals 1 tab PO DAILY Supplement 11/24/24
(Hair,Skin and Nails tablet)
sennosides 8.6 mg tablet (senna) 8.6 mg PO DAILYPRN PRN constipation 11/24/24
[2024-11-28 20:59] VITALS: BP 113/70
[2024-11-28] MEDS: NEURONTIN 300 MG PO (21:14)
[2024-11-28] MEDS: TYLENOL 650 MG PO (21:17)
[2024-11-28 23:21] VITALS: BP 158/77
[2024-11-29 03:15] VITALS: BP 160/77
--- NOTE | 2024-11-29 03:41 | W.PN.UPDATE ---
Update Note
Progress Note Update
TT by RN to evaluate patient, HR in 130's (A-V paced) for approximately 1 minute, as shown on potline monitor (strip in chart). HR down to 80's, shows A-V paced on monitor. Patient states he has no symptoms, denies palpitations, chest discomfort,
SOB, N/A. Ordered AM labs to be done at this time, added magnesium. Pt states he is followed by Dr. Blanchard, [facility]. Consider inpatient Cardiology consult, if appropriate.
[2024-11-29 04:03] LABS: Hematocrit 36.7 % (39.0-52.0); Hemoglobin 12.6 g/dL (13.0-18.0); Mean Corp Hgb Conc. 34.3 g/dL (33.0-37.0); Mean Corpuscular Hgb 34.3 pg (27.0-31.0); Mean Platelet Volume 9.6 fL (7.4-10.4); Platelet Count 178 10^3/uL (130-400); Red Blood Cell Count 3.67 10^6/uL (4.70-6.10); Red Cell Dist. Width 14.4 % (11.5-14.5); White Blood Cell Count 4.4 10^3/uL (4.8-10.8)
[2024-11-29 04:27] LABS: Blood Urea Nitrogen 14 mg/dl (9-20); Calcium 8.2 mg/dl (8.4-10.2); Carbon Dioxide 18 mmol/L (22-30); Chloride 108 mmol/L (98-107); Estimated Creatinine Clearance 53 ml/min; Glucose 144 mg/dl (70-99); Potassium 5.2 mmol/L (3.5-5.1); Sodium 130 mmol/L (135-145); eGFR > 60.00
--- NOTE | 2024-11-29 04:32 | PTCARENOTE ---
Patient had 1 minute run of paced tachycardia at 130 bpm. Patient was asymptomatic. Vitals were 98 degrees F, 160/77, 18 respirations, 97% oxygenation level. [employer] made aware. AM labs collected.
[2024-11-29] MEDS: SYNTHROID 88 MCG PO (05:47)
[2024-11-29 07:00] VITALS: BP 145/75
[2024-11-29] MEDS: FLOMAX 0.4 MG PO ×2 (08:48→20:26)
[2024-11-29] MEDS: DELTASONE 50 MG PO (08:48)
[2024-11-29] MEDS: ANTIVERT 12.5 MG PO ×3 (08:48→21:47)
[2024-11-29] MEDS: ELIQUIS 5 MG PO ×2 (08:48→20:26)
[2024-11-29] MEDS: FOLVITE 0.8 MG PO (08:48)
[2024-11-29] MEDS: SODIUM CHLORIDE 1 GRAM PO ×2 (08:48→20:26)
[2024-11-29 11:00] VITALS: BP 124/56
--- NOTE | 2024-11-29 11:26 | W.PN.NEPH.PH ---
Today's Communication / Plan
-
samsca
Assessment/Plan
-
89y M with PMH significant for ASCVD, hypertension and A-Fib who presents to ED complaining of LLQ abdominal pain.
Sodium 119
Chronic hyponatremia with recurrent admissions
Previously on salt tablets
Impression.
Hyponatremia. 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
Abdominal pain.
Hypertension.
Atrial fibrillation.
Plan.
follow BMP
continue NaCl tabs
add lasix daily
samsca today
-
-
Date of Service: November 29, 2024
CC / HPI / ROS
-
Chief Complaint:
Hyponatremia
History of Present Illness:
sodium lower 130
BP stable
no fever
calcium up to 8.2
Review of Systems:
c/o vertigo specially when looking left side
No chest pain or shortness of breath
Labs
-
Labs:
WBC 4.4 10^3/uL (4.8-10.8) L 11/29/24 03:56
RBC 3.67 10^6/uL (4.70-6.10) L 11/29/24 03:56
Hgb 12.6 g/dL (13.0-18.0) L 11/29/24 03:56
Hct 36.7 % (39.0-52.0) L 11/29/24 03:56
Plt Count 178 10^3/uL (130-400) 11/29/24 03:56
Sodium 130 mmol/L (135-145) L 11/29/24 03:56
Potassium 5.2 mmol/L (3.5-5.1) H 11/29/24 03:56
Chloride 108 mmol/L (98-107) H 11/29/24 03:56
Carbon Dioxide 18 mmol/L (22-30) L 11/29/24 03:56
BUN 14 mg/dl (9-20) 11/29/24 03:56
Creatinine 0.8 mg/dL (0.7-1.3) 11/29/24 03:56
eGFR > 60.00 11/29/24 03:56
Glucose 144 mg/dl (70-99) H 11/29/24 03:56
Calcium 8.2 mg/dl (8.4-10.2) L 11/29/24 03:56
Phosphorus 4.0 mg/dl (2.5-4.5) 11/27/24 03:21
Albumin 3.8 g/dl (3.5-5.0) 11/28/24 11:46
Physical Exam
-
Vital Signs:
Vital Signs
Temp Pulse Resp BP Pulse Ox
97.5 F 77 16 145/75 97
11/29/24 07:00 11/29/24 07:00 11/29/24 07:00 11/29/24 07:00 11/29/24 07:00
Cardiovascular:: Regular rate and rhythm
Respiratory:: Bilateral: CTA
Lung Excursion:: Normal
Abdomen:: Nontender and Soft
Bowel Sounds:: Normal
Extremity Edema:: None: Bilateral:
[2024-11-29] MEDS: PACERONE 200 MG PO (12:23)
[2024-11-29] MEDS: SAMSCA 15 MG PO (12:23)
[2024-11-29 15:22] VITALS: BP 132/67
--- NOTE | 2024-11-29 16:34 | CM ---
Chart reviewed home when stable.
Plan; Home [facility] when stable.
--- NOTE | 2024-11-29 16:58 | W.PN.HOSP.TC ---
Today's Communication/Plan
-
Samsca
Continue free water restriction, salt tablets Lasix
Follow BMP
Maintain bowel regimen
Assessment / Plan
Assessment / Plan
A/P: Patient is an 89y M with PMH significant for SIADH, ASCVD and A-Fib who presents to ED complaining of LLQ pain and noted to have hyponatremia.
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
Due to declining Na, Nephro requested transfer to ICU doing better, has now been transferred OOICU
SIADH
- Na on admission 119 (compared to baseline usually 125-130)
- Combination of pain response, increased fluid intake, etc.
- Urine studies: Osmo 419/Ur Na 91
- Fluid restriction. Discussed with nephro, okay to resume NaCl tabs
- Free water restriction, salt tabs, Lasix
-Samsca provided on 11/29
11/28 Today pt is complaining of severe and overwhelming dizziness, especially when looks to the left. Most likely this is vertigo, will order CT scan and request neuro opinion
Start Meclizine pending neuro eval
LLQ Abdominal Pain
- Unclear etiology of chronic / recurrent symptoms.
- Patient reports constipation; however, current CT and review of prior imaging all note liquid stool in colon / rectum and not large amount of stool burden / constipation seen on imaging.
Pain intensified when he needed to move bowels, then improved and is currently resolved
- No evidence of diverticulitis, etc. No tenderness on exam despite report of pain.
- Supportive care. Would hold further bowel regimen for now given liquid stool on imaging and improvement in symptoms
Has outpt appt with Dr. Nuñez in early December. ? vascular related. Call placed and discussed CT images with Dr. Graves, who felt that the radiologic images not typical for ischemic origin
- GI evaluation noted, they have signed off. Plan CRS consult discussed with Dr. Melgar.
Concern that the hyponatremia could be associated with pain and that the pain is coming from the lower bowel in the area of the sigmoid-descending colon area. ?Ischemic watershed area
CT scan 11/12: There is increased bibasilar reticular and nodular opacities which may represent acute pneumonitis superimposed on chronic interstitial disease. Findings can also be seen in the setting of aspiration.
Findings suggestive of coloenteritis/diarrheal illness.
Small hiatal hernia.
Cholelithiasis.
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
ASCVD
A-Fib s/p Ablation
- Stable. Continue current CV med regimen.
- s/p ablation and PPM placement.
- Continue amiodarone and Eliquis.
Hypothyroidism
- Continue current T4 replacement for now.
- TSH 7.19/free T4 2.17
BPH
- Stable. Continue tamsulosin.
DVT Prophylaxis: On Eliquis
hold dc due to severe Vertigo
Neuro consult
Code Status: Full
Anticipated Discharge: 24 - 48 hours
Subjective/Interval History
-
Date of Service: November 29, 2024
Objective Data
-
Vital Signs:
Vital Signs
Temp Pulse Resp BP Pulse Ox
98.3 F 76 18 132/67 96
11/29/24 15:22 11/29/24 15:22 11/29/24 15:22 11/29/24 15:22 11/29/24 15:22
I&O
11/28/24 11/29/24 11/30/24
06:59 06:59 06:59
Intake Total 480 / 480 960 / 960
Output Total 350 / 350
Balance 480 / 480 610 / 610
Physical Exam
-
General: Well Developed, Well Nourished and No Apparent Distress (generally looks better)
HEENT: Normocephalic, Atraumatic, Moist Mucous Membranes and Other (left lateral nystagmus)
Respiratory: Clear to Auscultation; Negative Wheezes, Rales or Rhonchi
Cardiac: Regular Rhythm and S1/S2
GI: Soft, Nontender, Nondistended and Normal Bowel Sounds
Musculoskeletal: No Clubbing, No Cyanosis and No Edema
Neuro: Awake, Alert and Oriented
[2024-11-29] MEDS: PRAVACHOL 20 MG PO (17:00)
[2024-11-29] MEDS: SENOKOT 17.2 MG PO (17:00)
--- NOTE | 2024-11-29 17:07 | VATNOTE ---
11/29 Primary RN stated right arm dressing is starting to show blood- Carlos wrap applied. continue to monitor
[2024-11-29 20:12] VITALS: BP 128/80
[2024-11-29] MEDS: TYLENOL 650 MG PO (20:45)
[2024-11-29] MEDS: NEURONTIN 300 MG PO (21:47)
[2024-11-29 23:40] VITALS: BP 135/58
[2024-11-30 03:05] VITALS: BP 157/82
[2024-11-30] MEDS: SYNTHROID 88 MCG PO (06:01)
[2024-11-30 07:40] VITALS: BP 143/60
[2024-11-30] MEDS: ELIQUIS 5 MG PO (08:48)
[2024-11-30] MEDS: ANTIVERT 12.5 MG PO ×2 (08:48→15:24)
[2024-11-30] MEDS: DELTASONE 50 MG PO (08:48)
[2024-11-30] MEDS: SODIUM CHLORIDE 1 GRAM PO (08:48)
[2024-11-30] MEDS: LASIX 20 MG PO (08:48)
[2024-11-30] MEDS: FOLVITE 0.8 MG PO (08:48)
[2024-11-30] MEDS: FLOMAX 0.4 MG PO (08:48)
[2024-11-30 08:49] LABS: Blood Urea Nitrogen 22 mg/dl (9-20); Calcium 8.2 mg/dl (8.4-10.2); Carbon Dioxide 18 mmol/L (22-30); Chloride 110 mmol/L (98-107); Estimated Creatinine Clearance 48 ml/min; Glucose 86 mg/dl (70-99); Potassium 4.4 mmol/L (3.5-5.1); Sodium 133 mmol/L (135-145); eGFR > 60.00
--- NOTE | 2024-11-30 09:28 | W.PN.NEPH.PH ---
Today's Communication / Plan
-
Okay for discharge from renal standpoint blood work 2 to 3 days postdischarge
Assessment/Plan
-
89y M with PMH significant for ASCVD, hypertension and A-Fib who presents to ED complaining of LLQ abdominal pain.
Sodium 119
Chronic hyponatremia with recurrent admissions
Previously on salt tablets
Impression.
Hyponatremia. 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
Abdominal pain.
Hypertension.
Atrial fibrillation.
Plan.
follow BMP
continue NaCl tabs
Continue Lasix
Sodium stable 133 okay for discharge from renal standpoint
-
-
Date of Service: November 30, 2024
CC / HPI / ROS
-
Chief Complaint:
Hyponatremia
History of Present Illness:
Sodium improved
BP stable
no fever
calcium up to 8.2
Review of Systems:
No chest pain or shortness of breath
Labs
-
Labs:
WBC 4.4 10^3/uL (4.8-10.8) L 11/29/24 03:56
RBC 3.67 10^6/uL (4.70-6.10) L 11/29/24 03:56
Hgb 12.6 g/dL (13.0-18.0) L 11/29/24 03:56
Hct 36.7 % (39.0-52.0) L 11/29/24 03:56
Plt Count 178 10^3/uL (130-400) 11/29/24 03:56
Sodium 133 mmol/L (135-145) L 11/30/24 07:35
Potassium 4.4 mmol/L (3.5-5.1) 11/30/24 07:35
Chloride 110 mmol/L (98-107) H 11/30/24 07:35
Carbon Dioxide 18 mmol/L (22-30) L 11/30/24 07:35
BUN 22 mg/dl (9-20) H 11/30/24 07:35
Creatinine 0.9 mg/dL (0.7-1.3) 11/30/24 07:35
eGFR > 60.00 11/30/24 07:35
Glucose 86 mg/dl (70-99) 11/30/24 07:35
Calcium 8.2 mg/dl (8.4-10.2) L 11/30/24 07:35
Phosphorus 4.0 mg/dl (2.5-4.5) 11/27/24 03:21
Albumin 3.8 g/dl (3.5-5.0) 11/28/24 11:46
Physical Exam
-
Vital Signs:
Vital Signs
Temp Pulse Resp BP Pulse Ox
98.4 F 68 18 143/60 98
11/30/24 07:40 11/30/24 08:48 11/30/24 07:40 11/30/24 08:48 11/30/24 07:40
Cardiovascular:: Regular rate and rhythm
Respiratory:: Bilateral: CTA
Lung Excursion:: Normal
Abdomen:: Nontender and Soft
Bowel Sounds:: Normal
Extremity Edema:: None: Bilateral:
[2024-11-30 11:04] VITALS: BP 149/76
[2024-11-30 11:05] VITALS: BP 140/72; BP 149/76; BP 96/62; PULSE 104; PULSE 98
[2024-11-30] MEDS: PACERONE 200 MG PO (11:09)
[2024-11-30] MEDS: TYLENOL 650 MG PO (11:09)
--- NOTE | 2024-11-30 12:35 | W.DS.TRANS ---
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
-
Discharge Instructions:
Discharge Diagnosis/Procedures Symptomatic hyponatremia.
Diet Restrict fluids to 48 oz
Blood Work BMP in one week
Instructions:
Stand-Alone Forms:
Changes to Home Medications: Yes
Discharge Medications:
DC Medications w/original date entered in [facility]
Ferrous Gluconate 324 mg PO BID Supplement 03/16/21
acetaminophen 325 mg tablet 325 mg PO Q6HPRN PRN mild pain 03/16/21
amiodarone 200 mg tablet (Pacerone) 200 mg PO DAILY@1200 Arrhythmia 03/16/21
apixaban 5 mg tablet (Eliquis) 5 mg PO BID Blood clot prevention/tx 03/16/21
ascorbic acid (vitamin C) 500 mg capsule 500 mg PO DAILY@1200 Supplement 03/16/21
cyanocobalamin (vitamin B-12) 1,000 mcg tablet 1,000 mcg PO DAILY@1200 Supplement 03/16/21
folic acid 400 mcg tablet 0.8 mg PO DAILY Stroke 03/16/21
gabapentin 300 mg capsule 300 mg PO HS Neurological Condition 03/16/21
pravastatin 20 mg tablet 20 mg PO QPM High cholesterol 03/16/21
denosumab 60 mg/mL subcutaneous syringe (Prolia) 60 mg SC [id number] OSTEOPEROSIS 11/12/24
levothyroxine 88 mcg tablet 88 mcg PO DAILY@06 Thyroid 11/12/24
tamsulosin 0.4 mg capsule 0.4 mg PO BID Urinary Issue 11/12/24
calcium carbonate (Calcium 600) 600 mg PO DAILY Supplement 11/24/24
multivitamin with minerals (Hair,Skin and Nails tablet) 1 tab PO DAILY Supplement 11/24/24
sennosides 8.6 mg tablet (senna) 8.6 mg PO DAILYPRN PRN constipation 11/24/24
furosemide 20 mg tablet 20 mg PO DAILY #30 tabs 11/30/24
sodium chloride 1,000 mg soluble tablet 1,000 mg PO BID #60 tabs 11/30/24
Home Medication Changes
Solu tab and Lasix added
Pending Results: No
--- NOTE | 2024-11-30 12:46 | CM ---
CM reviewed chart, patient for discharge today, plan return to [facility]. Patient declining VN at this time. IMM verbally reviewed, provided with copy, placed in chart. Patient confirms transportation home. CM will continue to follow for all
discharge planning needs.
Plan; return home to [facility]
[2024-11-30 15:55] VITALS: BP 150/68
== END 2024-11-30 16:42 | disposition home or self-care (01) | DRG 644 ==
LOC: 4 WEST ACU 00:56
PROVIDERS: Emergency Medicine; Internal Medicine; Nurse Practitioner Family; ADMITTING PHYSICIAN Hospitalist; ATTENDING PHYSICIAN Internal Medicine; CONSULT PHYSICIAN Internal Medicine Critical Care Medicine; CONSULT PHYSICIAN Internal Medicine Gastroenterology; CONSULT PHYSICIAN Psychiatry & Neurology Clinical Neurophysiology; CONSULT PHYSICIAN Surgery; EMERGENCY PHYSICIAN Emergency Medicine; FAMILY PHYSICIAN Internal Medicine; OTHER PHYSICIAN Internal Medicine Nephrology
DX: E22.2 Syndrome of inappropriate secretion of antidiuretic hormone (principal); E87.20 Acidosis, unspecified; M48.56XA Collapsed vertebra, not elsewhere classified, lumbar region, initial encounter for fracture; E78.00 Pure hypercholesterolemia, unspecified; I10 Essential (primary) hypertension; I25.10 Atherosclerotic heart disease of native coronary artery without angina pectoris; I48.91 Unspecified atrial fibrillation; K59.09 Other constipation; E03.9 Hypothyroidism, unspecified; D72.819 Decreased white blood cell count, unspecified; J84.10 Pulmonary fibrosis, unspecified; K44.9 Diaphragmatic hernia without obstruction or gangrene; K80.20 Calculus of gallbladder without cholecystitis without obstruction; M81.0 Age-related osteoporosis without current pathological fracture; D50.9 Iron deficiency anemia, unspecified; I35.0 Nonrheumatic aortic (valve) stenosis; K58.1 Irritable bowel syndrome with constipation; N40.0 Benign prostatic hyperplasia without lower urinary tract symptoms; I95.9 Hypotension, unspecified; M35.3 Polymyalgia rheumatica; R42 Dizziness and giddiness; Z60.2 Problems related to living alone; Z96.642 Presence of left artificial hip joint; Z95.1 Presence of aortocoronary bypass graft; Z95.2 Presence of prosthetic heart valve; Z95.0 Presence of cardiac pacemaker; Z90.49 Acquired absence of other specified parts of digestive tract; Z88.1 Allergy status to other antibiotic agents; Z88.5 Allergy status to narcotic agent; Z88.2 Allergy status to sulfonamides; Z88.8 Allergy status to other drugs, medicaments and biological substances; Z79.01 Long term (current) use of anticoagulants; Z79.890 Hormone replacement therapy; Z80.9 Family history of malignant neoplasm, unspecified; Z82.49 Family history of ischemic heart disease and other diseases of the circulatory system
CPT/HCPCS: 70450; 80048; 80053; 81003; 82040; 82962; 83690; 83735; 83935; 84100; 84300; 84439; 84443; 85025; 85027; 93005; 96360; 96361; 99284

== ENCOUNTER → 2025-01-02 11:36 | Outpatient (REF) | payer OTHER, SELFPAY | LOC: HWRAD 11:36 | PROVIDERS: ATTENDING PHYSICIAN Nurse Practitioner Family; FAMILY PHYSICIAN Internal Medicine | DX: J84.9 Interstitial pulmonary disease, unspecified (principal) | CPT/HCPCS: 71250 ==